=== PATIENT | male | born 1945 | race Caucasian/White ===

== ENCOUNTER 2024-07-18 11:18 | Emergency (ER) | payer OTHER, SELFPAY ==
--- NOTE | 2024-07-18 11:19 | ED_ITS ---
HPI - Ear Problem General Chief complaint: Ear Stated complaint: ear wax Time Seen by Provider: 07/18/24 11:30 Source: patient, RN notes reviewed and old records reviewed Mode of arrival: ambulatory Limitations: no limitations History of Present Illness HPI Narrative: 78-year-old male presents to the [facility] requesting to have earwax removed from his right ear states that he was at the hearing aid [facility] when they told him that he had too much wax in his right ear. Left was clear Related Data Home Medications ?Medication ?Instructions ?Recorded ?Confirmed ?Last Taken ?Type atorvastatin 40 mg tablet mg 07/18/24 Unknown History clopidogrel 75 mg tablet mg 07/18/24 Unknown History losartan 100 mg tablet mg 07/18/24 Unknown History Allergies Allergy/AdvReac Type Severity Reaction Status Date / Time No Known Allergies Allergy Verified 07/18/24 11:44 Review of Systems Review of Systems: All systems reviewed & are unremarkable except as noted in HPI and below Constitutional: Constitutional: Reports no additional constitutional complaints ENT: Reports as per HPI Cardiovascular: Cardiovascular: Reports no additional cardiovascular complaints, Denies chest pain and Denies dyspnea Respiratory: Respiratory: Reports no additional respiratory complaints, Denies chest congestion, Denies cough and Denies dyspnea Musculoskeletal: Musculoskeletal: Reports no additional musculoskeletal complaints Integumentary/Breasts: Skin/Breast: Reports system reviewed and no additional complaints, except as docu PMFSH Comments At the time of my signature, I reviewed and agree with the nursing past medical, surgical, social, and family history. There is no relevant family history pertinent to the patient complaint. Exam Const: General: cooperative, healthy appearing, comfortable, no acute distress, well developed, alert and well nourished Nutritional Appearance: well nourished Orientation/consciousness: patient oriented x3 Limitations: no limitations HENMT: Head: normal to inspection Ears: hearing grossly normal bilaterally, external ears normal, TM normal on the left and Abnormal EAC present excessive cerumen on the right Face/Nose/Sinus: Normal external nose present and Normal nares present Mouth: Yes Normal oral and palatal mucosa present, Yes lip normal, Yes tongue normal and Yes moist mucous membranes Eyes: General: appearance normal, both eyes and all related structures Alignment and Position: alignment normal Neck: Neck: normal visual inspection, full ROM, no lymphadenopathy and no meningeal signs Chest: Chest palpation & inspection: normal inspection of the chest Resp: Effort & Inspection: normal respiratory effort and able to speak in complete sentences Cardio: Rate: regular rate Skin: General skin exam: normal color and no rashes or lesions noted Neuro: General: patient oriented x3, gait normal, moves all extremities and no meningeal signs Cognition (Neuro): normal cognition Speech: normal speech Gait exam (Neuro): Normal gait present Extrem: General: normal to inspection, full ROM, capillary refill normal and normal gait Psych: Appearance: grossly normal and well kempt Mental Status: mental status grossly normal Speech and movement: Normal speech and movement present and Clear speech present Affect: normal affect Attitude: cooperative Course Course Level of Care: Express Care Visit Vital Signs Vital signs: Vital Signs Temperature 97.9 F 07/18/24 11:30 Pulse Rate 56 L 07/18/24 11:30 Respiratory Rate 07/18/24 11:30 Blood Pressure 129/77 07/18/24 11:30 Pulse Oximetry 97 07/18/24 11:30 Oxygen Delivery Room Air 07/18/24 11:30 Temperature 97.9 F 07/18/24 11:30 Pulse Rate 56 L 07/18/24 11:30 Respiratory Rate 07/18/24 11:30 Blood Pressure 129/77 07/18/24 11:30 Pulse Oximetry 97 07/18/24 11:30 Oxygen Delivery Room Air 07/18/24 11:30 Reviewed Procedures Ear Wax Removal Right Ear: Ear Wax Removal Date: 07/18/24 Ear Wax Removal Time: 12:23 Cerumenolytic Used: other ( water peroxide) Results: Re-examined: cerumen removed completely TM Examination: TM(s) intact, normal appearance Ear Canal Exam: atraumatic Patient Tolerated Procedure: well Complications: no problems Technique: ear canal irrigated and ear canal curetted Medical Decision Making MDM Narrative Medical decision making narrative: patient presents requesting his earwax removed. No earwax noted to left ear canal. Small amount noted to the right. Able to do irrigation as well as curette. Patient tolerated well. Patient is sitting comfortably in exam room. No acute distress and vitals are stable. Patient appropriate for outpatient treatment and follow-up Discharge instructions reviewed with patient, as well as provided in writing per nursing staff. The instructions also include specific and strict return/GO TO THE ER as well as f/u information. All questions have been answered, and the patient deny any further questions with discharge and discharge plan. Some parts of this dictation were generated by voice recognition software and may contain typographical and/or grammatical inaccuracies. Differential Diagnosis Differential Diagnosis: cerumen impaction, excessive cerumen, Medical Records Medical records reviewed: Yes I reviewed the external patient's medical records. Vital Signs Vital Signs: Vital Signs Temperature 97.9 F 07/18/24 11:30 Pulse Rate 56 L 07/18/24 11:30 Respiratory Rate 14 07/18/24 11:30 Blood Pressure 129/77 07/18/24 11:30 Pulse Oximetry 97 07/18/24 11:30 Oxygen Delivery Room Air 07/18/24 11:30 Temperature 97.9 F 07/18/24 11:30 Pulse Rate 56 L 07/18/24 11:30 Respiratory Rate 07/18/24 11:30 Blood Pressure 129/77 07/18/24 11:30 Pulse Oximetry 97 07/18/24 11:30 Oxygen Delivery Room Air 07/18/24 11:30 Reviewed Lab Data Lab results reviewed: Yes I reviewed the patient's lab results. Labs: Reviewed Critical Care Time Critical Care Time Critical Care Time: No Discharge Plan Discharge Clinical Impression: Excessive cerumen in right ear canal Patient Disposition: Home, Self-Care Condition: Stable Instructions: Antibiotic Form, Carbamide Peroxide (Into the ear) Additional Instructions: You had Cerumen (EAR wax impaction). Do not use Q-tips or put anything in the ear. This can damage the ear. Instead , use Debrox or ear wax remover. Place 5 drops in ear after a hot shower and place a warm compress over the ear for 20 minutes. alternate doing this every 3-4 days. It will break up the wax gently. Do not use too much pressure. Once you have all of the cerumen out of your ears, you may do preventative treatment to prevent this from happening again. Use 5 drops once weekly after a hot shower. Patient Language: [place] Prescriptions: No Action atorvastatin 40 mg tablet clopidogrel 75 mg tablet losartan 100 mg tablet Follow-up/Referrals: UNKNOWN,DOCTOR [Primary Care Provider] - Time of Disposition: 12:29
[2024-07-18 11:30] VITALS: BP 129/77; PULSE 56; RESP 14; TEMP 36.6; O2SAT 97
--- OUTSIDE RECORDS SUMMARY | 2024-07-18 12:08 | XMS_ITS | Patient Health Summary ---
Author Organization [facility] Address [address] [place] [address] Care Team Providers Care Retention Representative Name Role Phone Unavailable Primary Care Provider Unavailabl e Note from [facility],non-owned Affiliates and Associated Physician Practices is amultiple site organization consisting of ambulatory clinics and hospital sitesin [place], [place], [place] and [place]. This disclosure is being madepursuant to the Care Everywhere program and may not contain all information available regarding this patient. Last updated 18.[facility] Social History Tobacco Use Types Packs/Day Years Used Date Smoking Tobacco: Never Assessed Sex and Gender Information Value Date Recorded Sex Assigned at Not on file Gender Identity Not on file Sexual Orientation Not on file Procedures * DERMATOPATHOLOGY(Performed 10/31/2023) * DERMATOPATHOLOGY(Performed 06/13/2023) * DERMATOPATHOLOGY(Performed 12/13/2022) * DERMATOPATHOLOGY(Performed 10/05/2022) * DERMATOPATHOLOGY(Performed 06/15/2021) * DERMATOPATHOLOGY(Performed 11/11/2020) * DERMATOPATHOLOGY(Performed 01/06/2020) * DERMATOPATHOLOGY(Performed 10/28/2019) Results * DERMATOPATHOLOGY (10/31/2023 12:00 AM CDT) Only the most recent of8 resultswithin the time period is included. Case Report Dermatopathology Report Case: [id number] Authorizing Provider: Al Salazar Jr., MD Collected: 10/31/2023 12:00 AM Ordering Location: [facility] - Received: 10/31/2023 12:50 PM DermPath Lab Pathologist: Elba Vaughn MD Specimens: A) - Skin, right medial superior chest B) - Skin, right superior helix 3:52 PM CDT DERMATOPATHOLOGY LABORATORY Final Diagnosis Specimen A. 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 SKIN, right superior helix: SQUAMOUS CELL CARCINOMA, WELL DIFFERENTIATED (C44.222) 3:52 PM CDT DERMATOPATHOLOGY LABORATORY Clinical History A-B: BCC 3:52 PM CDT DERMATOPATHOLOGY LABORATORY Gross Description Specimen A: Received is one formalin filled container labeled with the patient's name and designated right medial superior chest. The specimen consists of a shave biopsy measuring 6x5x1 mm. Jar 0. Specimen B: Received is one formalin filled container labeled with the patient's name and designated right superior helix. The specimen consists of a shave biopsy measuring 5x3x1 mm. Jar 0. 3:52 PM CDT DERMATOPATHOLOGY LABORATORY Microscopic Description Specimen A. SKIN, right medial superior chest: The epidermis shows parakeratosis, full thickness disorderly maturation of keratinocytes, mitoses at different levels, and dyskeratotic cells. Specimen B. SKIN, right superior helix: Arising in the epidermis and extending into the dermis there are irregularly shaped aggregates of keratinocytes showing evidence of premature cornification. Some nests display focally infiltrative growth. 3:52 PM CDT DERMATOPATHOLOGY LABORATORY Disclaimer An external and internal positive and negative controls are appropriate for the histochemical, immunohistochemical and immunofluorescence stain(s) in this case (if any), except where stated explicitly. The performance characteristics of the stain(s) cited in this report were developed and its performance characteristic determined by the Dermatopathology Laboratory at [facility], directed by Dr. Tarik Echeverria. These tests need not be, and therefore are not, approved by the [place] Food and Drug Administration. The tests are used for clinical purposes. Billing Codes Specimen Charges Stain Charges 34557 42841 1 1 3:52 PM CDT DERMATOPATHOLOGY LABORATORY Embedded Images 3:52 PM CDT DERMATOPATHOLOGY LABORATORY Pathology/Cytology TISSUE SPECIMEN FROM SKIN / Unknown 10/31/2023 10/31/2023 12:50 PM CDT Miscellaneous samples (specimen) TISSUE SPECIMEN FROM SKIN / Unknown 10/31/2023 10/31/2023 12:50 PM CDT Al Salazar Jr., MD LAB - PATHOLOGY /CYTOLOGY ORDERABLES Performing Organization Address City/State/[facility] Co de Phone Number DERMATOPATHOLOGY LABORATORY [facility] - Department of Dermatology [facility] [address] [place] [address], [address] [phone]
--- OUTSIDE RECORDS SUMMARY | 2024-07-18 12:08 | XMS_ITS | Encounter Summary ---
Author Organization [facility] Address [address] [place] [address] Care Team Providers Care Pen Or Pencil Assembly Machine Operator Name Role Phone Unavailable Primary Care Provider Unavailabl e Encounter Details Date Type Department Care Team (Late st Contact Info) Description 10/05/2022 Lab Requisition [facility] - DermPath Lab [address] [facility] [place] [id number] Al Salazar Jr., MD [address] [place] [address] Social History Tobacco Use Types Packs/Day Years Used Date Smoking Tobacco: Never Assessed Sex and Gender Information Value Date Recorded Sex Assigned at Not on file Gender Identity Not on file Sexual Orientation Not on file documented as of this encounter Plan of Treatment Not on file documented as of this encounter Procedures Procedure Name Priority Date/Time Associated Diagnosis Comments DERMATOPATHOLOGY Routine 10/05/2022 12:0 0 AM CDT documented in this encounter Results * DERMATOPATHOLOGY (10/05/2022 12:00 AM CDT) Case Report Dermatopathology Report Case: [id number] Authorizing Provider: Al Salazar Jr., MD Collected: 10/05/2022 12:00 AM Ordering Location: [facility] DermPath Lab Received: 10/05/2022 02:25 PM Pathologist: Ami Echeverria MD Specimen: Skin, right central malar cheek 3 12:00 PM CDT DERMATOPATHOLOGY LABORATORY Final Diagnosis Specimen A. SKIN, right central malar cheek: EPIDERMOID CYST WITH EVIDENCE OF RUPTURE (L72.0) 3 12:00 PM CDT DERMATOPATHOLOGY LABORATORY Clinical History Cyst vs BCC 3 12:00 PM CDT DERMATOPATHOLOGY LABORATORY Gross Description Specimen A: Received is one formalin filled container labeled with the patient's name and designated right central malar cheek. The specimen consists of two punch biopsies measuring 4x3x3 and 2x2x1 mm. Jar 0. 3 12:00 PM CDT DERMATOPATHOLOGY LABORATORY Microscopic Description Specimen A. SKIN, right central malar cheek: Within the dermis, there is a space lined by epithelium that resembles normal epidermis and the infundibular portion of the hair follicle. Surrounding this is an infiltrate with neutrophils, histiocytes, and multinucleated giant cells. 3 12:00 PM CDT DERMATOPATHOLOGY LABORATORY Disclaimer An external and internal positive and negative controls are appropriate for the histochemical, immunohistochemical and immunofluorescence stain(s) in this case (if any), except where stated explicitly. The performance characteristics of the stain(s) cited in this report were developed and its performance characteristic determined by the Dermatopathology Laboratory at [facility], directed by Dr. Tarik Echeverria. These tests need not be, and therefore are not, approved by the [place] Food and Drug Administration. The tests are used for clinical purposes. Billing Codes Specimen Charges Stain Charges 30488 1 3 12:00 PM CDT DERMATOPATHOLOGY LABORATORY Embedded Images 3 12:00 PM CDT DERMATOPATHOLOGY LABORATORY Pathology/Cytolog y TISSUE SPECIMEN FROM SKIN / Unknown 10/05/2022 10/05/2022 2:25 PM CDT Al Salazar Jr., MD LAB - PATHOLOGY /CYTOLOGY ORDERABLES DERMATOPATHOLOGY LABORATORY [facility] - Department of Dermatology [address], [address] [phone] documented in this encounter Visit Diagnoses Not on filedocumented in this encounter
--- OUTSIDE RECORDS SUMMARY | 2024-07-18 12:08 | XMS_ITS | Encounter Summary ---
Author Organization [facility] Address [address] [place] [address] Care Team Providers Care Broadcast Systems Engineer Name Role Phone Unavailable Primary Care Provider Unavailabl e Encounter Details Date Type Department Care Team (Late st Contact Info) Description 01/07/2020 Lab Requisition [facility] DermPath Lab [address] [facility] [place] [phone] [place] [address] [place] [address] Social History Tobacco Use Types Packs/Day Years Used Date Smoking Tobacco: Never Assessed Sex and Gender Information Value Date Recorded Sex Assigned at Not on file Gender Identity Not on file Sexual Orientation Not on file documented as of this encounter Plan of Treatment Not on file documented as of this encounter Procedures Procedure Name Priority Date/Time Associated Diagnosis Comments DERMATOPATHOLOGY Routine 01/06/2020 12:0 0 AM CDT documented in this encounter Results * DERMATOPATHOLOGY (01/06/2020 12:00 AM CDT) Case Report Dermatopathology Report Case: [id number] Authorizing Provider: Leslee Tee MD Collected: 01/06/2020 12:00 AM Ordering Location: [facility] DermPath Lab Received: 01/07/2020 02:19 PM Pathologist: Carmelita Vaughn MD Specimen: Skin, nasal tip 0 1:02 PM CDT DERMATOPATHOLOGY LABORATORY Final Diagnosis Specimen A. SKIN, nasal tip: ACTINIC KERATOSIS (L57.0) (see microscopic description) 0 1:02 PM CDT DERMATOPATHOLOGY LABORATORY Clinical History Basal cell carcinoma. . 0 1:02 PM CDT DERMATOPATHOLOGY LABORATORY Gross Description Specimen A: Received is one formalin filled container labeled with the patient's name and designated nasal tip. The specimen consists of a shave biopsy measuring [id number]. Jar 0. 0 1:02 PM CDT DERMATOPATHOLOGY LABORATORY Microscopic Description Specimen A. SKIN, nasal tip: There is focal parakeratosis. The lower half of the epidermis shows disorderly maturation of keratinocytes with nuclear pleomorphism. Adnexal extension of the lesion is seen. 0 1:02 PM CDT DERMATOPATHOLOGY LABORATORY Disclaimer An external and internal positive and negative controls are appropriate for the histochemical, immunohistochemical and immunofluorescence stain(s) in this case (if any), except where stated explicitly. The performance characteristics of the stain(s) cited in this report were developed and its performance characteristic determined by the Dermatopathology Laboratory at [facility], directed by Dr. Tarik Echeverria. These tests need not be, and therefore are not, approved by the [place] Food and Drug Administration. The tests are used for clinical purposes. Billing Codes Specimen Charges Stain Charges 54244 1 0 1:02 PM CDT DERMATOPATHOLOGY LABORATORY Embedded Images 0 1:02 PM CDT DERMATOPATHOLOGY LABORATORY Pathology/Cytolog y TISSUE SPECIMEN FROM SKIN / Unknown 01/06/2020 01/07/2020 2:19 PM CDT Leslee Tee MD LAB - PATHOLOGY/C YTOLOGY ORDERABLES DERMATOPATHOLOGY LABORATORY [facility] - Department of Dermatology [address], [address] [phone] documented in this encounter Visit Diagnoses Not on filedocumented in this encounter
--- OUTSIDE RECORDS SUMMARY | 2024-07-18 12:08 | XMS_ITS | Clinical Summary ---
Author Organization [facility] Address [address] [facility] [facility] [place] [address] Care Team Providers Care Coiled Tubing Operator Name Role Phone Unavailable Primary Care Provider Unavailabl e Source Comments [facility] [employer],non-owned Affiliates and Associated Physician Practices is amultiple site organization consisting of ambulatory clinics and hospital sitesin [place], [place], [place] and [place]. This disclosure is being madepursuant to the Care Everywhere program and may not contain all information available regarding this patient. Last updated 18.[facility] [employer] Social History Tobacco Use Types Packs/Day Years Used Date Smoking Tobacco: Never Assessed Sex and Gender Information Value Date Recorded Sex Assigned at Not on file Gender Identity Not on file Sexual Orientation Not on file Plan of Treatment Health Maintenance Due Date Last Done Comments MEDICARE AWV 12 MONTHS 1945 HEPATITIS C SCREENING 10/01/1964 DTAP/TDAP/TD VACCINES (1 - Tdap) 1965 PNEUMOCOCCAL VACCINE 50+ (1 of 1 - PCV) 1996 ZOSTER VACCINE (1 of 2) 1996 Respiratory Syncytial Virus (RSV) Vaccine Pt: or over 60 yrs (1 - 1-dose 75+ series) 2021 COVID-19 VACCINE ( - 2023-2 5 season) 2024 INFLUENZA VACCINE (#1) 2024 DEPRESSION SCREENING 05/07/2024 MEDICARE AWV CALENDAR YEAR 2024 HEPATITIS B VACCINE Aged Out No longe r eligible based on patient's age to complete this topic HIB VACCINE Aged Out No longer eligi ble based on patient's age to complete this topic HPV VACCINE Aged Out No longer eligi ble based on patient's age to complete this topic MENINGOCOCCAL (Group B) VACC INE SHARED DECISION-MAKING Aged Out No longer eligibl e based on patient's age to complete this topic MENINGOCOCCAL GROUPS A/C/Y/W VACCINE Aged Out No longer eligible b ased on patient's age to complete this topic
--- OUTSIDE RECORDS SUMMARY | 2024-07-18 12:08 | XMS_ITS | Encounter Summary ---
Author Organization [facility] Address [address] [place] [address] Care Team Providers Care Medical Assistant Secretary Name Role Phone Unavailable Primary Care Provider Unavailabl e Encounter Details Date Type Department Care Team (Late st Contact Info) Description 11/12/2020 Lab Requisition [facility] DermPath Lab [address] [facility] [place] [address] Al Salazar Jr., MD [address] [facility] [address] [place] [address] Social History Tobacco Use Types Packs/Day Years Used Date Smoking Tobacco: Never Assessed Sex and Gender Information Value Date Recorded Sex Assigned at Not on file Gender Identity Not on file Sexual Orientation Not on file documented as of this encounter Plan of Treatment Not on file documented as of this encounter Procedures Procedure Name Priority Date/Time Associated Diagnosis Comments DERMATOPATHOLOGY Routine 11/11/2020 12:0 0 AM CDT documented in this encounter Results * DERMATOPATHOLOGY (11/11/2020 12:00 AM CDT) Case Report Dermatopathology Report Case: [id number] Authorizing Provider: Al Salazar Jr., MD Collected: 11/11/2020 12:00 AM Ordering Location: [facility] DermPath Lab Received: 11/12/2020 02:21 PM Pathologist: Cindy Trinidad MD Specimen: Skin, right anterior earlobe 6:41 PM CDT DERMATOPATHOLOGY LABORATORY Final Diagnosis Specimen A. 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 . 1 6:41 PM CDT DERMATOPATHOLOGY LABORATORY Gross Description Specimen A: Received is one formalin filled container labeled with the patient's name and designated right anterior earlobe. The specimen consists of a shave biopsy measuring [id number]. Jar 0. 1 6:41 PM CDT DERMATOPATHOLOGY LABORATORY Microscopic Description Specimen A. SKIN, right anterior earlobe: Sections show skin with irregularly shaped nests of keratinocytes with evidence of cornification. In some nests, there is loss of cohesion between the neoplastic cells, as well as individual dyskeratotic cells that lack intercellular bridges. 1 6:41 PM CDT DERMATOPATHOLOGY LABORATORY Disclaimer An external and internal positive and negative controls are appropriate for the histochemical, immunohistochemical and immunofluorescence stain(s) in this case (if any), except where stated explicitly. The performance characteristics of the stain(s) cited in this report were developed and its performance characteristic determined by the Dermatopathology Laboratory at [facility], directed by Dr. Tarik Echeverria. These tests need not be, and therefore are not, approved by the [place] Food and Drug Administration. The tests are used for clinical purposes. Billing Codes Specimen Charges Stain Charges 94005 1 1 6:41 PM CDT DERMATOPATHOLOGY LABORATORY Embedded Images 1 6:41 PM CDT DERMATOPATHOLOGY LABORATORY Pathology/Cytolog y TISSUE SPECIMEN FROM SKIN / Unknown 11/11/2020 11/12/2020 2:21 PM CDT Al Salazar Jr., MD LAB - PATHOLOGY /CYTOLOGY ORDERABLES DERMATOPATHOLOGY LABORATORY [facility] - Department of Dermatology [address], [address] [phone] documented in this encounter Visit Diagnoses Not on filedocumented in this encounter
--- OUTSIDE RECORDS SUMMARY | 2024-07-18 12:08 | XMS_ITS | Encounter Summary ---
Author Organization [facility] Address [address] [facility] [place] [address] Care Team Providers Care Director Of Marketing Communications Name Role Phone Unavailable Primary Care Provider Unavailabl e Encounter Details Date Type Department Care Team (Late st Contact Info) Description 06/16/2021 Lab Requisition [facility] [address] [facility] [place] [address] Al Salazar Jr., MD [address] [facility] [address] [place] [address] Social History Tobacco Use Types Packs/Day Years Used Date Smoking Tobacco: Never Assessed Sex and Gender Information Value Date Recorded Sex Assigned at Not on file Gender Identity Not on file Sexual Orientation Not on file documented as of this encounter Plan of Treatment Not on file documented as of this encounter Procedures Procedure Name Priority Date/Time Associated Diagnosis Comments DERMATOPATHOLOGY Routine 06/15/2021 12:0 0 AM SAP ARCHITECT documented in this encounter Results * DERMATOPATHOLOGY (06/15/2021 12:00 AM SAP ARCHITECT) Case Report Dermatopathology Report Case: [id number] Authorizing Provider: Al Salazar Jr., MD Collected: 06/15/2021 12:00 AM Ordering Location: [facility] Received: 06/16/2021 10:43 AM Pathologist: Ami Echeverria MD Specimens: A) - Skin, left superior parietal scalp B) - Skin, right central zygoma C) - Skin, left lateral tenriism 1:20 PM SAP ARCHITECT DERMATOPATHOLOGY LABORATORY Final Diagnosis Specimen A. 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 SKIN, right central zygoma: HYPERPLASTIC (HYPERTROPHIC) ACTINIC KERATOSIS (L57.0) Specimen C. 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 The specimen consists of a shave biopsy measuring 6x6x2 mm. Jar 0. Specimen B: Received is one formalin filled container labeled with the patient's name and designated right central zygoma. The specimen consists of a shave biopsy measuring 7x5x2 mm. Jar 0. Specimen C: Received is one formalin filled container labeled with the patient's name and designated left lateral tenriism. The specimen consists of a shave biopsy measuring 7x6x2 and 5x4x1 mm. Jar 0. 2 1:20 PM [facility] DERMATOPATHOLOGY [facility]ORATORY Microscopic Description Specimen A. SKIN, left superior parietal scalp: The epidermis shows parakeratosis, full thickness disorderly maturation of keratinocytes, mitoses at different levels, and dyskeratotic cells. Specimen B. SKIN, right central zygoma: There is hyperkeratosis alternating with parakeratosis. There is epidermal hyperplasia with disorderly maturation of keratinocytes with nuclear pleomorphism confined to the lower half of the epidermis. Specimen C. SKIN, left lateral tenriism: There is focal parakeratosis. The lower half of the epidermis shows disorderly maturation of keratinocytes with nuclear pleomorphism. Focally there is a suprabasilar cleft with acantholytic cells. 2 1:20 PM [facility] DERMATOPATH[facility]Y [facility]ORATORY Disclaimer An external and internal positive and negative controls are appropriate for the histochemical, immunohistochemical and immunofluorescence stain(s) in this case (if any), except where stated explicitly. The performance characteristics of the stain(s) cited in this report were developed and its performance characteristic determined by the Dermatopathology Laboratory at [facility], directed by Dr. Tarik Echeverria. These tests need not be, and therefore are not, approved by the [place] Food and Drug Administration. The tests are used for clinical purposes. Billing Codes Specimen Charges Stain Charges 28899 95608 01916 1 1 1 2 1:20 PM SAP ARCHITECT DERMATOPATHOLOGY LABORATORY Embedded Images 2 1:20 PM SAP ARCHITECT DERMATOPATHOLOGY LABORATORY Pathology/Cytology TISSUE SPECIMEN FROM SKIN / Unknown 06/15/2021 06/16/2021 10:43 AM SAP ARCHITECT Miscellaneous samples (specimen) TISSUE SPECIMEN FROM SKIN / Unknown 06/15/2021 06/16/2021 10:43 AM SAP ARCHITECT Miscellaneous samples (specimen) TISSUE SPECIMEN FROM SKIN / Unknown 06/15/2021 06/16/2021 10:43 AM SAP ARCHITECT Al Salazar Jr., MD LAB - PATHOLOGY /CYTOLOGY ORDERABLES DERMATOPATHOLOGY LABORATORY [facility] - Department of Dermatology [facility] Medicine [address] [place] [address], [address] [phone] documented in this encounter Visit Diagnoses Not on filedocumented in this encounter
--- OUTSIDE RECORDS SUMMARY | 2024-07-18 12:08 | XMS_ITS | Encounter Summary ---
Author Organization [facility] Address [address] [facility] [place] [address] Care Team Providers Care Road Freight Brake Coupler Name Role Phone Unavailable Primary Care Provider Unavailabl e Encounter Details Date Type Department Care Team (Late st Contact Info) Description 12/14/2022 Lab Requisition [facility] Lab [address] [facility] [place] [phone] Al Salazar Jr., MD [address] [facility] [address] [place] [address] Social History Tobacco Use Types Packs/Day Years Used Date Smoking Tobacco: Never Assessed Sex and Gender Information Value Date Recorded Sex Assigned at Not on file Gender Identity Not on file Sexual Orientation Not on file documented as of this encounter Plan of Treatment Not on file documented as of this encounter Procedures Procedure Name Priority Date/Time Associated Diagnosis Comments DERMATOPATHOLOGY Routine 12/13/2022 12:0 0 AM CDT documented in this encounter Results * DERMATOPATHOLOGY (12/13/2022 12:00 AM CDT) Case Report Dermatopathology Report Case: [id number] Authorizing Provider: Al Salazar Jr., MD Collected: 12/13/2022 12:00 AM Ordering Location: [facility] Received: 12/14/2022 02:23 PM Pathologist: Ami Echeverria MD Specimen: Skin, left lateral malar cheek 3 1:08 PM CDT DERMATOPATHOLOGY LABORATORY Final Diagnosis Specimen A. SKIN, left lateral malar cheek: HYPERPLASTIC (HYPERTROPHIC) ACTINIC KERATOSIS (L57.0) 3 1:08 PM CDT DERMATOPATHOLOGY LABORATORY Clinical History SCC vs AK vs ISK 3 1:08 PM CDT DERMATOPATHOLOGY LABORATORY Gross Description Specimen A: Received is one formalin filled container labeled with the patient's name and designated left lateral malar cheek. The specimen consists of a shave biopsy measuring 5x7x2 mm. Jar 0. 3 1:08 PM CDT DERMATOPATHOLOGY LABORATORY Microscopic Description Specimen A. SKIN, left lateral malar cheek: There is hyperkeratosis alternating with parakeratosis. There is epidermal hyperplasia with disorderly maturation of keratinocytes with nuclear pleomorphism confined to the lower half of the epidermis. 3 1:08 PM CDT DERMATOPATHOLOGY LABORATORY Disclaimer An external and internal positive and negative controls are appropriate for the histochemical, immunohistochemical and immunofluorescence stain(s) in this case (if any), except where stated explicitly. The performance characteristics of the stain(s) cited in this report were developed and its performance characteristic determined by the Dermatopathology Laboratory at [facility], directed by Dr. Tarik Echeverria. These tests need not be, and therefore are not, approved by the [place] Food and Drug Administration. The tests are used for clinical purposes. Billing Codes Specimen Charges Stain Charges 18539 1 3 1:08 PM CDT DERMATOPATHOLOGY LABORATORY Embedded Images 3 1:08 PM CDT DERMATOPATHOLOGY LABORATORY Pathology/Cytolog y TISSUE SPECIMEN FROM SKIN / Unknown 12/13/2022 12/14/2022 2:23 PM CDT Al Salazar Jr., MD LAB - PATHOLOGY /CYTOLOGY ORDERABLES DERMATOPATHOLOGY LABORATORY [facility] - Department of Dermatology [address] [place] [address], [facility] [phone] documented in this encounter Visit Diagnoses Not on filedocumented in this encounter
--- OUTSIDE RECORDS SUMMARY | 2024-07-18 12:08 | XMS_ITS | Referral Summary ---
Author Organization [facility] Address [address] [facility] [address] Care Team Providers Care Directional Drill Operator Name Role Phone Unavailable Primary Care Provider Unavailabl e Source Comments [facility],non-owned Affiliates and Associated Physician Practices is amultiple site organization consisting of ambulatory clinics and hospital sitesin [place], [place], [place] and [place]. This disclosure is being madepursuant to the Care Everywhere program and may not contain all information available regarding this patient. Last updated 18.[facility] [employer] Social History Tobacco Use Types Packs/Day Years Used Date Smoking Tobacco: Never Assessed Sex and Gender Information Value Date Recorded Sex Assigned at Not on file Gender Identity Not on file Sexual Orientation Not on file Plan of Treatment Not on file
--- OUTSIDE RECORDS SUMMARY | 2024-07-18 12:08 | XMS_ITS | Encounter Summary ---
Author Organization [facility] Address [address] [facility] [place] [address] Care Team Providers Care Digital Media Representative Name Role Phone Unavailable Primary Care Provider Unavailabl e Encounter Details Date Type Department Care Team (Late st Contact Info) Description 10/29/2019 Lab Requisition [facility] Lab [address] [facility] [place] [phone] [place] [address] [place] [address] Social History Tobacco Use Types Packs/Day Years Used Date Smoking Tobacco: Never Assessed Sex and Gender Information Value Date Recorded Sex Assigned at Not on file Gender Identity Not on file Sexual Orientation Not on file documented as of this encounter Plan of Treatment Not on file documented as of this encounter Procedures Procedure Name Priority Date/Time Associated Diagnosis Comments DERMATOPATHOLOGY Routine 10/28/2019 12:0 0 AM CDT documented in this encounter Results * DERMATOPATHOLOGY (10/28/2019 12:00 AM CDT) Case Report Dermatopathology Report Case: [id number] Authorizing Provider: Leslee Tee MD Collected: 10/28/2019 12:00 AM Ordering Location: [facility] Received: 10/29/2019 01:42 PM Pathologist: Ami Echeverria MD Specimen: Skin, left inferior central forehead 0 1:05 PM CDT DERMATOPATHOLOGY LABORATORY Final Diagnosis Specimen A. 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 0 1:05 PM CDT DERMATOPATHOLOGY LABORATORY Gross Description Specimen A: Received is one formalin filled container labeled with the patient's name and designated left inferior central forehead. The specimen consists of a shave biopsy measuring 4x3x1 mm. Jar 0. 0 1:05 PM CDT DERMATOPATHOLOGY LABORATORY Microscopic Description Specimen A. SKIN, left inferior central forehead: The epidermis shows parakeratosis, full thickness disorderly maturation of keratinocytes, mitoses at different levels, and dyskeratotic cells. 0 1:05 PM CDT DERMATOPATHOLOGY LABORATORY Disclaimer An external and internal positive and negative controls are appropriate for the histochemical, immunohistochemical and immunofluorescence stain(s) in this case (if any), except where stated explicitly. The performance characteristics of the stain(s) cited in this report were developed and its performance characteristic determined by the Dermatopathology Laboratory at [facility], directed by Dr. Tarik Echeverria. These tests need not be, and therefore are not, approved by the [place] Food and Drug Administration. The tests are used for clinical purposes. Billing Codes Specimen Charges Stain Charges 05764 1 0 1:05 PM CDT DERMATOPATHOLOGY LABORATORY Embedded Images 0 1:05 PM CDT DERMATOPATHOLOGY LABORATORY Pathology/Cytolog y TISSUE SPECIMEN FROM SKIN / Unknown 10/28/2019 10/29/2019 1:42 PM CDT Leslee Tee MD LAB - PATHOLOGY/C YTOLOGY ORDERABLES DERMATOPATHOLOGY LABORATORY [facility] - Department of Dermatology [facility] [employer] [facility]/[address] [phone] documented in this encounter Visit Diagnoses Not on filedocumented in this encounter
--- OUTSIDE RECORDS SUMMARY | 2024-07-18 12:08 | XMS_ITS | Encounter Summary ---
Author Organization [facility] Address [address] [place] [address] Care Team Providers Care Administration Dean Name Role Phone Unavailable Primary Care Provider Unavailabl e Encounter Details Date Type Department Care Team (Late st Contact Info) Description 06/13/2023 Lab Requisition [facility] - [facility] Lab [address] [facility] [place] [phone] Al Salazar Jr., MD [address] [facility] [address] [place] [address] Social History Tobacco Use Types Packs/Day Years Used Date Smoking Tobacco: Never Assessed Sex and Gender Information Value Date Recorded Sex Assigned at Not on file Gender Identity Not on file Sexual Orientation Not on file documented as of this encounter Plan of Treatment Not on file documented as of this encounter Procedures Procedure Name Priority Date/Time Associated Diagnosis Comments DERMATOPATHOLOGY Routine 06/13/2023 3:33 AM BODY DESIGNER documented in this encounter Results * DERMATOPATHOLOGY (06/13/2023 3:33 AM BODY DESIGNER) Case Report Dermatopathology Report Case: [id number] Authorizing Provider: Al Salazar Jr., MD Collected: 06/13/2023 03:33 AM Ordering Location: [facility] Lab Received: 06/13/2023 04:09 PM Pathologist: Elba Vaughn MD Specimen: Skin, posterior mid parietal scalp 4 4:33 PM BODY DESIGNER DERMATOPATHOLOGY LABORATORY Final Diagnosis Specimen A. SKIN, posterior mid parietal scalp: SUPERFICIAL (FOCALLY INVASIVE) SQUAMOUS CELL CARCINOMA ARISING IN AN ACTINIC KERATOSIS (C44.42) 4 4:33 PM BODY DESIGNER DERMATOPATHOLOGY LABORATORY Clinical History Squamous Cell Carcinoma 4 4:33 PM [facility] DERMATOPATHOLOGY LABORATORY Gross Description Specimen A: Received is one formalin filled container labeled with the patient's name and designated posterior mid parietal scalp. The specimen consists of a shave biopsy measuring 8x5x1 mm. Jar 0. 4 4:33 PM [facility] DERMATOPATHOLOGY LABORATORY Microscopic Description Specimen A. SKIN, posterior mid parietal scalp: Sections reveal parakeratosis, acanthosis and keratinocyte dysmaturation which is most prominent in the lower epidermis. Focal nests are present in the dermis. 4 4:33 PM [facility] DERMATOPATHOLOGY LABORATORY Disclaimer An external and internal [...] purposes. Billing Codes Specimen Charges Stain Charges 50652 1 4 4:33 PM [facility] DERMATOPATHOLOGY LABORATORY Embedded Images 4 4:33 PM [facility] DERMATOPATHOLOGY LABORATORY Pathology/Cytolo gy TISSUE SPECIMEN FROM SKIN / Unknown 06/13/2023 3:33 AM BODY DESIGNER 06/13/2023 4:09 PM BODY DESIGNER Al Salazar Jr., MD LAB - PATHOLOGY /CYTOLOGY ORDERABLES DERMATOPATHOLOGY LABORATORY [facility] - Department of Dermatology [address], [address] [phone] documented in this encounter Visit Diagnoses Not on filedocumented in this encounter
--- OUTSIDE RECORDS SUMMARY | 2024-07-18 12:08 | XMS_ITS | Encounter Summary ---
Author Organization [facility] Address [address] [facility] [place] [address] Care Team Providers Care Supervisor Labor Gang Name Role Phone Unavailable Primary Care Provider Unavailabl e Encounter Details Date Type Department Care Team (Late st Contact Info) Description 10/31/2023 Lab Requisition [facility] - [facility] Lab [address] [facility] [place] [phone] Al Salazar Jr., MD [address] [facility] [address] [place] [address] Social History Tobacco Use Types Packs/Day Years Used Date Smoking Tobacco: Never Assessed Sex and Gender Information Value Date Recorded Sex Assigned at Not on file Gender Identity Not on file Sexual Orientation Not on file documented as of this encounter Plan of Treatment Not on file documented as of this encounter Procedures Procedure Name Priority Date/Time Associated Diagnosis Comments DERMATOPATHOLOGY Routine 10/31/2023 12:0 0 AM CDT documented in this encounter Results * DERMATOPATHOLOGY (10/31/2023 12:00 AM CDT) Case Report Dermatopathology Report Case: [id number] Authorizing Provider: Al Salazar Jr., MD Collected: 10/31/2023 12:00 AM Ordering Location: [facility] Physician [facility] - Received: 10/31/2023 12:50 PM DermPath Lab [...] purposes. Billing Codes Specimen Charges Stain Charges 73551 62646 1 1 3:52 PM CDT DERMATOPATHOLOGY LABORATORY Embedded Images 3:52 PM CDT DERMATOPATHOLOGY LABORATORY Pathology/Cytology TISSUE SPECIMEN FROM SKIN / Unknown 10/31/2023 10/31/2023 12:50 PM CDT Miscellaneous samples (specimen) TISSUE SPECIMEN FROM SKIN / Unknown 10/31/2023 10/31/2023 12:50 PM CDT Al Salazar Jr., MD LAB - PATHOLOGY /CYTOLOGY ORDERABLES DERMATOPATHOLOGY LABORATORY [facility] - Department of Dermatology [facility] Medicine [address] [place] [address], [address] [phone] documented in this encounter Visit Diagnoses Not on filedocumented in this encounter
--- OUTSIDE RECORDS SUMMARY | 2024-07-18 12:09 | XMS_ITS | Referral Summary ---
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 colorectal cancer who were screened with both Cologuard and colonoscopy. (Murray Celis al, N Engl J Med 2014;370(14):1085-1511) The normal value (reference range) for this assay is negative. COLOGUARD RE-SCREENING RECOMMENDATION: Periodic routine colorectal cancer screening is an important part of preventive healthcare for asymptomatic persons at average risk for colorectal cancer. Following a negative Cologuard result, the [place] [employer] and U.S. Multi-Society Task Force screening guidelines recommend a Cologuard re-screening interval of 3 years. References: [place] (ACS). Colorectal cancer prevention and early detection. [place], [place]: [employer]; [updated 2015Aug 28]. https://www.cancer.org/cancer/oawws-itptmg-gcftyw/gneyswsyx-pswsxvbco-zmbknmz/ac s-rec ommendations.html. Accessed January 04, 2018; Pelon DK, Dereck TURK, Joni CAMP, Colorectal Cancer Screening: Recommendations for Physicians and Patients from the U.S. Multi-Society Task Force on Colorectal Cancer Screening, Am J Gastroenterology 2017; 112:3103-9345. TEST TYPE: Composite algorithmic analysis of stool DNA-biomarkers with hemoglobin immunoassay. Quantitative values of individual biomarkers are not reportable and are not associated with individual biomarker result reference ranges. PRECAUTIONS AND LIMITATIONS: Cologuard is intended for colorectal cancer screening of adults of either sex, 45 years or older, who are at average-risk for colorectal cancer (CRC). Cologuard has been approved for use by the U.S. FDA. Cologuard may produce a false negative or false positive result. A negative Cologuard test result does not guarantee the absence of CRC or advanced adenoma (pre-cancer). Patients with a negative Cologuard test result should be advised to continue participating in a colorectal cancer screening program. The screening interval for Cologuard is currently recommended at an interval of every 3 years by the [place] [employer] and U.S. Multi-Society Task Force. A false positive result occurs when Cologuard produces a positive result, even though a colonoscopy may not find colorectal cancer or precancerous polyps. The performance of Cologuard has been established in a cross sectional study (i.e., single point in time) of average-risk adults aged 50-84. Cologuard performance in patients ages 45 to 49 years was estimated by sub-group analysis of near-age groups. Cologuard performance data in a 10,000 patient pivotal study using colonoscopy as the reference method can be accessed at the following location: www.[employer]/results. Additional description of the Cologuard test process, warnings and precautions can be found at www.cologuardtest.com. Rx only. Stool 03/23/2020 8:30 AM INSURANCE POLICY CLERK 03/24/2020 12:38 PM INSURANCE POLICY CLERK Erica Henriquez MD LAB BODY FLUIDS AND STOOL S ORDERABLES Final Result [facility] (CLIA #:[id number]) [place] [place] [address] * Hepatitis C antibody (03/15/2020 3:57 PM INSURANCE POLICY CLERK) Hep C Ab Nonreactive Nonreactive IVANA PACHECO Comment: Interpretive Data Nonreactive: Antibodies to HCV not detected. Does NOT exclude the possibility of recent exposure to HCV. Equivocal: Equivocal for HCV antibodies. Supplemental molecular testing will be automatically performed to determine infection status in accordance with current CDC screening recommendations. Reactive: Positive for HCV antibodies. This may represent current or past HCV infection. Supplemental molecular testing will be automatically performed to determine current infection status in accordance with current CDC screening recommendations. Interpretive data was last revised on 2019. Blood specimen (specimen) 03/15/2020 3:57 PM INSURANCE POLICY CLERK 03/15/2020 7:53 PM INSURANCE POLICY CLERK Erica Henriquez MD LAB MICROBIOLOGY - GENERA L ORDERABLES Final Result Performing Organization Address City/[facility] Co de Phone Number [facility] [address] Department [place] [address] * Colonoscopy (12/06/2009) Anatomical Region Laterality Modality Other Historical Provider ENDOSCOPY PROCEDURES Jenae l Result from Last 3 Months or Most Recently Relevant to Health Maintenance Insurance [facility] Advance Directives For more information, please contact: [phone] Documents on File Type Date Recorded Patient Fisher Clam Expl anation ADVANCE DIRECTIVE 03/17/2019 9:52 AM Care Teams Ball Assembler Relationship Specialty [place] [id number] [address] [facility] [address] [place] [address] PCP - General 08/04/16 Nixon Ramirez MD [address] [facility] [address] [place] [address] Referring Physician Dermatology 11/19/23 Al Salazar Jr., MD [address] [facility] [address] [place] [address] Dermatology 03/20/24 Martinez Bruner DPM [address] [place] [address] Plastic Surgeon Foot and Ankle Surg 03/20/24 [place] [address] [facility] [address] [place] [address] Consulting Physician Cardiology 03/20/24
--- OUTSIDE RECORDS SUMMARY | 2024-07-18 12:09 | XMS_ITS | CONTINUITY OF CARE DOCUMENT ---
Author Name francy sen Address Unknown Organization [facility] Address [address] [place] [address] Phone [phone] Care Team Providers Care Brooch And Bracelet Maker Name Role Phone Abdoulaye Tran MD Unavailable [phone] BRNENA RENE, AME L Unavailable BRENNA RENE AME L Unavailable PROBLEMS Condition Status Date Provider Notes BRADYCARDIA SINUS:DUE TO EXERCISE, INTOL TO COREG completed - Abdoulaye Tran MD ISCHEMIA;NEG NUC 11, pos stress 14 with 85% rca to be stented completed - Abdoulaye Tran MD B12 DEFICIENCY; completed - Abdoulaye Tran MD hx of Abdominal discomfort completed 06/23 - Abdoulaye Tran MD BPH active Abdoulaye Tran MD Diverticulosis, colon active Abdoulaye Tran MD covid 19;post vaccine active Abdoulaye Tran MD Hypertriglyceridemia completed - Abdoulaye Trna MD Overweight active Abdoulaye Tran MD Mitral insufficiency, mild active Abdoulaye duggan MD ? 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 Abdoulaye barlow MD STENT - BARE METAL LAD, CLOS ED ON TABLE 08 AND RESTENT, rca bm stent 14 with rv ptca for complete completed - Abdoulaye Tran MD CAD: NEG CAROTID active Abdoulaye Tran MD DI D NOT WANT 2.5, HYPERTENSION, ESSENTIAL: active Abdoulaye claros MD Hyperlipidemia;lpa 50 active Abdoulaye Tran MD ENCOUNTERS Date Type Provider Location Encounter Diag nosis - In-person encounter Office Visit Abdoulaye Tran MD [facility] - In-person encounter Office Visit Abdoulaye Tran MD [facility] HYPERTENSION, ESSENTIAL:CAD: NEG CAROTID - In-person encounter Office Visit Abdoulaye Tran MD [facility] - In-person encounter Office Visit Abdoulaye Tran MD [facility] - In-person encounter Office Visit Abdoulaye Tran MD [facility] CAD: NEG CAROTIDDiverticulosis, colonBPH - In-person encounter Office Visit Abdoulaye Tran MD [facility] covid 19;post vaccine - In-person encounter Office Visit Abdoulaye Tran MD [facility] B12 DEFICIENCY;Diastolic dysfunctionHypertriglyceridemiacovid 19;post vaccine - In-person encounter Office Visit Joon oBone MD [facility] - In-person encounter Office Visit Abdoulaye Tran MD [facility] Office STENT - BARE METAL LAD, CLOSED ON TABLE 08 AND RESTENT, rca bm stent 14 with rv ptca for completeDiastolic dysfunctionhx of Abdominal discomfort? Sleep apneaMitral insufficiency, mildOverweight - In-person encounter Office Visit Abdoulaye Tran MD [facility] - In-person encounter Office Visit Abdoulaye Tran MD [facility] Hyperlipidemia;lpa 50Screening - In-person encounter Office Visit Abdoulaye Tran MD [facility] Diastolic dysfunctionMitral regurgitation, mildhx of Abdominal discomfort - In-person encounter Office Visit Abdoulaye Tran MD [facility] Hyperlipidemia;lpa 50Screening - In-person encounter Office Visit Abdoulaye Tran MD [facility] Diastolic dysfunctionAortic valve sclerosis - In-person encounter Office Visit Ruthie Carrero MD [facility] - In-person encounter Office Visit Abdoulaye Tran MD [facility] - In-person encounter Office Visit Abdoulaye Tran MD [facility] Hyperlipidemia;lpa 50B12 DEFICIENCY; - In-person encounter Office Visit Abdoulaye Tran MD [facility] Hyperlipidemia;lpa 50HYPERTENSION, ESSENTIAL:ANEMIA, B12 DEFICIENCY;PER DR CALVIN12 DEFICIENCY; - In-person encounter Office Visit Abdoulaye Tran MD [facility] Hyperlipidemia;lpa 50BRADYCARDIA SINUS:DUE TO EXERCISE, INTOL TO COREGISCHEMIA;NEG NUC 11, pos stress 14 with 85% rca to be stented - In-person encounter Office Visit Abdoulaye Tran MD [facility] Hyperlipidemia;lpa 50AMI SUBENDOCARDIAL 2008LOW HDL;ON SIMCOR 1000/20, GREAT 2010ISCHEMIA;NEG NUC 11, pos stress 14 with 85% rca to be stented - In-person encounter Office Visit Abdoulaye Tran MD [facility] Hyperlipidemia;lpa 50CAD: NEG CAROTIDSTENT - BARE METAL LAD, CLOSED ON TABLE 08 AND RESTENT, rca bm stent 14 with rv ptca for completeBRADYCARDIA SINUS:DUE TO EXERCISE, INTOL TO COREGAMI SUBENDOCARDIAL 2007 - In-person encounter Office Visit Abdoulaye Tran MD [facility] Hyperlipidemia;lpa 50CAD: NEG CAROTIDSTENT - BARE METAL LAD, CLOSED ON TABLE 08 AND RESTENT, rca bm stent 14 with rv ptca for completeBRADYCARDIA SINUS:DUE TO EXERCISE, INTOL TO COREGAMI SUBENDOCARDIAL 2007IMMUNE THROMBOCYTOPENIC PURPURA;PRE DATES PLAVIXLOW HDL;ON SIMCOR 1000/20, GREAT 2009 - In-person encounter Office Visit Abdoulaye Tran MD [facility] Hyperlipidemia;lpa 50HYPERTENSION, ESSENTIAL:CAD: NEG CAROTIDSTENT - BARE METAL LAD, CLOSED ON TABLE 08 AND RESTENT, rca bm stent 14 with rv ptca for completeBRADYCARDIA SINUS:DUE TO EXERCISE, INTOL TO COREGAMI SUBENDOCARDIAL 2007 VITAL SIGNS Date Observation Value Provider Body Mass Index (Ratio) 28.12 kg/m2 Marcus Tran MD blood pressure, diastolic 77 mm[Hg] Franc Willis blood pressure, systolic 120 mm[Hg] Sunshine Willis oxygen saturation, oximetry 97 % Dayanara Willis pulse rate 85 /min Dayanara [facility] weight E&M 169 [lb_av] Dayanara [facility] height E&M 65 [in_i] Dayanara [facility] Body Mass Index (Ratio) 28.62 kg/m2 Marcus Tran MD blood pressure, diastolic 81 mm[Hg] Mi dre Pratt blood pressure, systolic 135 mm[Hg] Carson missy Pratt oxygen saturation, oximetry 97 % Lela Pratt pulse rate 74 /min Lela [facility] blood pressure, cuff size large Sydney erickson [place] respiratory rate E&M 14 /min Dolores brenda [place] weight E&M 172 [lb_av] Lela Cobb d height E&M 65 [in_i] Lela [facility]iann Body Mass Index (Ratio) 28.62 kg/m2 Marcus Tran MD blood pressure, diastolic 90 mm[Hg] Sydney erickson [place] blood pressure, systolic 140 mm[Hg] [facility] missy [place] oxygen saturation, oximetry 99 % Lela [place] pulse rate 68 /min Lela [facility]n weight E&M 172 [lb_av] Lela [facility]n blood pressure, cuff size large Sydney erickson [place] respiratory rate E&M 16 /min Dolores gutierrez [place] height E&M 65 [in_i] Lela Cobb mariann Body Mass Index (Ratio) 27.79 kg/m2 Marcus Tran MD blood pressure, diastolic 86 mm[Hg] St imcaela Anaya blood pressure, systolic 134 mm[Hg] Sta jayesh Anaya weight E&M 167 [lb_av] Daisha Héctor oxygen saturation, oximetry 96 % Daisha Héctor pulse rate 61 /min Daisha Héctor respiratory rate E&M 16 /min Daisha D bianca height E&M 65 [in_i] Daisha Héctor Body Mass Index (Ratio) 27.95 kg/m2 Marcus Tran MD blood pressure, diastolic -1 mm[Hg] Naty nkLogcydney blood pressure, systolic 138 mm[Hg] Melissa Chatmanogcydney blood pressure, diastolic 76 mm[Hg] Ara Brand blood pressure, systolic 138 mm[Hg] Balbina Brand respiratory rate E&M 20 /min Gilma Brand pulse rate 78 /min Gilma Brand blood pressure, cuff size regular Ara Brand oxygen saturation, oximetry 98 % Gilma Brand weight E&M 168 [lb_av] Gilma Brand height E&M 65 [in_i] Gilma Brand Body Mass Index (Ratio) 28.29 kg/m2 Marcus Tran MD blood pressure, diastolic 89 mm[Hg] Richard celestinakathrine Denia SLP blood pressure, systolic 140 mm[Hg] Brittani shama Loza SLP oxygen saturation, oximetry 96 % Katelyn Mane respiratory rate E&M 16 /min Catheri ne Brodnax pulse rate 66 /min Katelyn Brodnax weight E&M 170 [lb_av] Katelyn Mane blood pressure, cuff size regular Ca therine Brodnax height E&M 65 [in_i] Katelyn Mane Body Mass Index (Ratio) 29.12 kg/m2 Marcus Tran MD blood pressure, diastolic 70 mm[Hg] Humberto [place] blood pressure, systolic 120 mm[Hg] Angelica [place] oxygen saturation, oximetry 98 % Arlene [place] respiratory rate E&M 16 /min Dangelo [place] pulse rate 72 /min Arlene Manuel raad weight E&M 175 [lb_av] Arlene Manuel nson height E&M 65 [in_i] Arlene Manuel nson Body Mass Index (Ratio) 28.45 kg/m2 Joon Boone MD blood pressure, diastolic 80 mm[Hg] Tabby Bahena blood pressure, systolic 120 mm[Hg] Milton Quintanaafford oxygen saturation, oximetry 98 % Kelle Quintanaafford respiratory rate E&M 18 /min Kelle Barba wafford pulse rate 76 /min Kelle Quintanaafford weight E&M 171 [lb_av] Kelle Josef height E&M 65 [in_i] Kelle Quintanaafford Body Mass Index (Ratio) 28.95 kg/m2 Marcus Tran MD oxygen saturation, oximetry 97 % Chastity Alicja blood pressure, diastolic 76 mm[Hg] astity Alicja blood pressure, systolic 120 mm[Hg] Jamila stity Alicja pulse rate 78 /min [facility] respiratory rate E&M 16 /min Chastit y Alicja weight E&M 174 [lb_av] Chastity Alicja height E&M 65 [in_i] [facility] Alicja Body Mass Index (Ratio) 28.79 kg/m2 Marcus Tran MD blood pressure, diastolic 70 mm[Hg] Gabriel [facility], systolic 110 mm[Hg] Nehemiah brucelucinda Rasheed pulse rate 70 /min Ashli respiratory rate E&M 17 /min Ashli [place] oxygen saturation, oximetry 98 % Ashli Rasheed blood pressure, cuff size regular Gabriel españa weight E&M 173 [lb_av] Ashli Rasheed height E&M 65 [in_i] Ashli [place] blood pressure, diastolic 84 mm[Hg] Te onia Vandana blood pressure, systolic 130 mm[Hg] Bossman aracely Ross Body Mass Index (Ratio) 27.95 kg/m2 Marcus Tran MD blood pressure, resting Yes [place] cox O'Juanito blood pressure, diastolic 80 mm[Hg] Humberto meredith O'Juanito blood pressure, systolic 140 mm[Hg] Angelica cerna O'Juanito oxygen saturation, oximetry 98 % Alexandria O'Juanito respiratory rate E&M 16 /min Alexandria O'Juanito pulse rate 73 /min Alexandria O'Juanito weight E&M 168 [lb_av] Alexandria O'Juanito height E&M 65 [in_i] Alexandria O'Juanito blood pressure, diastolic 80 mm[Hg] Judy Taylor blood pressure, systolic 120 mm[Hg] Bree Taylor pulse rate 63 /min Melly Taylor oxygen saturation, oximetry 98 % Melly Taylor respiratory rate E&M 18 /min Melly Taylor Body Mass Index (Ratio) 28.45 kg/m2 Jes Taylor weight E&M 171 [lb_av] Melly Taylor blood pressure, diastolic 76 mm[Hg] Sa ndra Horsey blood pressure, systolic 124 mm[Hg] Valdes jacque Horsey pulse rate 82 /min Sugey Horsey oxygen saturation, oximetry 98 % Sugey Horsey respiratory rate E&M 18 /min Sugey Horsey Body Mass Index (Ratio) 28.02 kg/m2 Sand ra Horsey weight E&M 168.4 [lb_av] Sugey Horsey height E&M 65 [in_i] Abdoulaye Waite blood pressure, diastolic 80 mm[Hg] Talat Bernal blood pressure, systolic 131 mm[Hg] Corky Bernal Body Mass Index (Ratio) 27.62 kg/m2 Marcus Tran MD pulse rate 66 /min Amara Bernal oxygen saturation, oximetry 98 % Amara Bernal respiratory rate E&M 16 /min Amara Bernal weight E&M 166 [lb_av] Amara Bernal oxygen saturation, oximetry 98 % Ruthie Carrero MD pulse rate 83 /min Ruthie Carrero MD blood pressure, diastolic 90 mm[Hg] To ulises Carrero MD blood pressure, systolic 138 mm[Hg] Ton radha Carrero MD blood pressure, diastolic 91 mm[Hg] Ta carlota Bernal blood pressure, systolic 148 mm[Hg] Corky Bernal Body Mass Index (Ratio) 39.04 kg/m2 Albertina Bernal pulse rate 72 /min Amara Bernal oxygen saturation, oximetry 97 % Amara Bernal respiratory rate E&M 15 /min Amara Bernal weight E&M 168 [lb_av] Amara Bernal blood pressure, diastolic 42 mm[Hg] Ca hussein Carver blood pressure, systolic 119 mm[Hg] Can dacbrenda HardinWen Body Mass Index (Ratio) 38.35 kg/m2 [facility] franca respiratory rate E&M 15 /min [facility] blood pressure, diastolic 68 mm[Hg] As [facility] franca blood pressure, systolic 124 mm[Hg] [facility] pulse rate 77 /min [facility] oxygen saturation, oximetry 98 % [facility] weight E&M 165 [lb_av] Radha [facility] Body Mass Index (Ratio) 37.56 kg/m2 Crystal alida Pedro blood pressure, diastolic 89 mm[Hg] Ch erese Pedro blood pressure, systolic 147 mm[Hg] Mandy rese Pedro pulse rate 68 /min Irinaalida Pedro oxygen saturation, oximetry 99 % Irina Pedro respiratory rate E&M 16 /min Irinaalida Pedro weight E&M 161 [lb_av] Irina Pedro blood pressure, diastolic 85 mm[Hg] Arnold Pedro blood pressure, systolic 127 mm[Hg] Mandy Pedro pulse rate 61 /min Irina Pedro oxygen saturation, oximetry 98 % Irina Pedro respiratory rate E&M 14 /min Irina Pedro weight E&M 156 [lb_av] Irina Pedro height E&M 55 [in_i] Irina Pedro blood pressure, diastolic, left arm 78 mm [Hg] Amarilis Zuñiga MA blood pressure, systolic, left arm 127 mm [Hg] Amarilis Zuñiga MA blood pressure, diastolic, right arm 86 m m[Hg] Amarilis Zuñiga MA blood pressure, systolic, right arm 139 m m[Hg] Amarilis Zuñiga MA oxygen saturation, oximetry 98 % Amarilis Zuñiga MA blood pressure, diastolic 86 mm[Hg] Lisa Zuñiga MA blood pressure, systolic 139 mm[Hg] Rene Zuñiga MA pulse rate 68 /min Amarilis Zuñiga MA respiratory rate E&M 14 /min Amarilis Zuñiga MA weight E&M 165 [lb_av] Amarilis Zuñiga MA blood pressure, diastolic, left arm 77 mm [Hg] Amarilis Zuñiga MA blood pressure, systolic, left arm 126 mm [Hg] Amarilis Zuñiga MA blood pressure, diastolic, right arm 76 m m[Hg] Amarilis Zuñiga MA blood pressure, systolic, right arm 121 m m[Hg] Amarilis Zuñiga MA oxygen saturation, oximetry 97 % Amarilis Zuñiga MA blood pressure, diastolic 77 mm[Hg] Lisa Zuñiga MA blood pressure, systolic 126 mm[Hg] Rene Zuiñga MA pulse rate 78 /min Amarilis Zuñiga MA respiratory rate E&M 16 /min Amarilis Zuñiga MA weight E&M 161 [lb_av] Amarilis Zuñiga [place] blood pressure, diastolic, left arm 89 mm [Hg] Jerome [place] blood pressure, systolic, left arm 140 mm [Hg] Jerome [place] blood pressure, diastolic, right arm 88 m m[Hg] Jerome [place] blood pressure, systolic, right arm 148 m m[Hg] Jerome [place] blood pressure, diastolic 88 mm[Hg] Rehana seph [place] blood pressure, systolic 148 mm[Hg] Judah eph [place] pulse rate 56 /min [facility], oximetry 100 % [facility] rate E&M 16 /min [place] weight E&M 163.31 [lb_av] [facility] blood pressure, diastolic 86 mm[Hg] Lisa Zuñiga [place] blood pressure, systolic 144 mm[Hg] Rene Zuñiga [place] pulse rate 62 /min Amarilis Zuñiga [place] oxygen saturation, oximetry 99 % Amarilis Zuñiga [place] respiratory rate E&M 18 /min Amarilis Zuñiga [place] weight E&M 164 [lb_av] Amarilis Zuñiga [place] ALLERGIES Allergy Name Onset Date Reaction Criticality Status EFFIENT NOSE BLEED Low Criticality active COREG lorri Low Criticality active RESULTS Date Observation Value Provider Reference Range Interpretation Location prothrombin time (patient) 11.3 s [facility] 9.1-12.0 international normalized ratio (INR) 1.1 [facility] 0.9-1.2 lipoprotein, beta, serum, point, quantitative, calculated 62 mg/dL [facility] 0-99 HDL cholesterol, serum 39 mg/dL [facility] >39 Low triglyceride, serum, random 94 mg/dL [facility] 0-149 cholesterol, serum 119 mg/dL [facility] 916-475 1326/01 /25 calcium, serum 9.8 mg/dL [facility] 8.6-10.2 carbon dioxide, venous blood 23 mmol/L [facility] 20-29 chloride, serum 108 mmol/L [facility] 96-106 High potassium, serum 4.6 mmol/L [facility] 3.5-5.2 sodium, serum 145 mmol/L [facility] 134-144 High urea nitrogen/creatinine ratio, serum 17 [facility] 10-24 creatinine, serum 1.15 mg/dL [facility] 0.76-1.27 urea nitrogen, blood 20 mg/dL [facility] 8-27 blood glucose, random 106 mg/dL [facility] 70-99 High basophil count, absolute 0.1 x10E3/uL [facility] 0.0-0.2 Eosinophil Absolute Count 0.2 X10E3/UL [facility] 0.0-0.4 monocyte count, blood, automated 0.5 X10E3/UL [facility] 0.1-0.9 lymphocyte count, blood, automated 1.9 X10E3/UL [facility] 0.7-3.1 Absolute Neutrophils 3.3 X10E3/UL [facility] 1.4-7.0 basophils as percent of blood leukocytes 1 % [facility] Not Estab. eosinophils as percent of blood leukocytes 3 % [facility] Not Estab. monocytes as percent of blood leukocytes 9 % [facility] Not Estab. lymphocytes as percent of blood leukocytes 31 % [facility] Not Estab. neutrophils as percent of blood leukocytes 56 % [facility] Not Estab. platelet count 118 X10E3/UL [facility] 150-450 Low red blood cell distribution width 12.9 % [facility] 11.6-15.4 mean corpuscular hemoglobin concentration, RBC 33.8 G/DL [facility] 31.5-35.7 mean corpuscular hemoglobin, RBC 31.1 pg [facility] 26.6-33.0 mean corpuscular volume, RBC 92 fL [facility] 79-97 hematocrit, blood 47.3 % [facility] 37.5-51.0 hemoglobin, blood 16.0 g/dL [facility] 13.0-17.7 erythrocyte (RBC) count 5.14 X10E6/UL [facility] 4.14-5.80 leukocyte count, blood 6.0 X10E3/UL [facility] 3.4-10.8 pro brain natriuretic peptide 53 pg/mL [facility] 0-486 B-12, serum 470 pg/mL [facility] 232-1245 lipoprotein, beta, serum, point, quantitative, calculated 70 mg/dL [facility] 0-99 very low density lipoproteins 33 mg/dL [facility] 5-40 HDL cholesterol, serum 35 mg/dL [facility] >39 Low triglyceride, serum, random 165 mg/dL [facility] 0-149 High cholesterol, serum 138 mg/dL [facility] 620-840 7504/02 /27 calcium, serum 9.7 mg/dL [facility] 8.6-10.2 carbon dioxide, venous blood 22 mmol/L [facility] 20-29 chloride, serum 107 mmol/L [facility] 96-106 High potassium, serum 4.2 mmol/L [facility] 3.5-5.2 sodium, serum 147 mmol/L [facility] 134-144 High urea nitrogen/creatinine ratio, serum 11 [facility] 10-24 eGFR if 71 mL/min/{1.73_ m2} [facility] >59 eGFR if not 61 mL/min/{1.73_ m2} [facility] >59 creatinine, serum 1.19 mg/dL [facility] 0.76-1.27 urea nitrogen, blood 13 mg/dL [facility] 8-27 blood glucose, random 86 mg/dL [facility] 65-99 hemoglobin A1C, blood, as % of total hemoglobin 5.5 % [facility] 4.0 - 6.0 vitamin b12, serum 1774.0 pg/mL [facility] 211.0 - 946.0 High prostate specific antigen 2.63 ng/mL [facility] triglyceride, serum, fasting 100 mg/dL [facility] HDL cholesterol, serum 43 mg/dL [facility] LDL cholesterol, serum 66 mg/dL [facility] cholesterol, serum 129 mg/dL [facility] anion gap, serum 11.8 [facility] globulins, serum, total 2.4 g/dL [facility] Estimated Glomerular Filtration Rate (calc) 62 mL/min/{1.73_ m2} [facility] protein, total, serum 6.6 g/dL [facility] albumin, serum 4.2 g/dL [facility] bilirubin, serum, total 0.80 mg/dL [facility] alkaline phosphatase, serum 63 1/L [facility] alanine aminotransferase (SGPT), serum 18 1/L [facility] aspartate aminotransferase (SGOT), serum 25 1/L [facility] calcium, serum 10.0 mg/dL [facility] blood glucose, fasting 96 mg/dL [facility] creatinine, serum 1.18 mg/dL [facility] urea nitrogen, blood 14 mg/dL [facility] carbon dioxide, serum, total 30 mmol/L [facility] chloride, serum 107 mmol/L [facility] potassium, serum 4.8 mmol/L [facility] sodium, serum 144 mmol/L [facility] platelet count 107 10*3/uL [facility] red blood cell distribution width 13.0 % [facility] mean corpuscular hemoglobin concentration, RBC 34.0 g/dL [facility] mean corpuscular hemoglobin, RBC 32.0 pg [facility] mean corpuscular volume, RBC 94.3 fL [facility] hematocrit, blood 47.7 % [facility] hemoglobin, blood 16.2 g/dL [facility] erythrocyte (RBC) count 5.06 10*6/mm3 [facility] leukocyte count, blood 6.01 10*3/mm3 [facility] globulins, serum, total 2.3 g/dL [facility] Estimated Glomerular Filtration Rate (calc) >60 [facility] albumin/globulin ratio, serum 2.0 [facility] protein, total, serum 6.8 g/dL [facility] albumin, serum 4.5 g/dL [facility] bilirubin, serum, total 0.7 mg/dL [facility] alkaline phosphatase, serum 83 1/L [facility] alanine aminotransferase (SGPT), serum 20 1/L [facility] aspartate aminotransferase (SGOT), serum 16 1/L [facility] calcium, serum 9.6 mg/dL [facility] blood glucose, fasting 105 mg/dL [facility] creatinine, serum 1.02 mg/dL [facility] urea nitrogen, blood 18 mg/dL [facility] carbon dioxide, serum, total 27 mmol/L [facility] chloride, serum 111 mmol/L [facility] potassium, serum 5.1 mmol/L [facility] sodium, serum 144 mmol/L Lorin Eddie alanine aminotransferase (SGPT), serum 16 1/L [facility] 9-60 Normal aspartate aminotransferase (SGOT), serum 20 1/L [facility] 10-35 Normal alkaline phosphatase, serum 66 1/L [facility] 40-115 Normal bilirubin, serum, total 0.7 mg/dL [facility] 0.2-1.2 Normal albumin/globulin ratio, serum 2.0 (calc) [facility] 1.0-2.1 Normal globulins, serum, total 2.3 G/DL (CALC) [facility] 2.1-3.7 Normal albumin, serum 4.5 g/dL [facility] 3.6-5.1 Normal protein, total, serum 6.8 g/dL [facility] 6.2-8.3 Normal calcium, serum 9.8 mg/dL [facility] 8.6-10.2 Normal carbon dioxide, venous blood 29 mmol/L [facility] 21-33 Normal chloride, serum 108 mmol/L [facility] 98-110 Normal potassium, serum 4.5 mmol/L [facility] 3.5-5.3 Normal sodium, serum 145 mmol/L [facility] 135-146 Normal urea nitrogen/creatinine ratio, serum NOT APPLICABLE (calc) [facility] 6-22 creatinine, serum 1.30 mg/dL [facility] 0.50-1.30 Normal urea nitrogen, blood 20 mg/dL [facility] 7-25 Normal blood glucose, random 97 mg/dL [facility] 65-99 Normal cholesterol/HDL ratio, serum, percent 2.7 (calc) [facility] < OR = 5.0 Normal LDL cholesterol, serum 49 MG/DL (CALC) [facility] <130 Normal HDL cholesterol, serum 42 mg/dL [facility] > OR = 40 Normal cholesterol, serum 112 mg/dL [facility] 125-200 Low triglyceride, serum, fasting 107 mg/dL [facility] <150 Normal HISTORY OF MEDICATION USE Medication Status Instructions Dates Provider [facility] mg tablet active TAKE 1 TABLET BY MOUTH EVERY DAY Jyoti Guerrero losartan 100 mg tablet active TAKE 1 TABLET BY MOUTH EVERY DAY Mary Baxter clopidogrel 75 mg tablet active TAKE 1 TABLET BY MOUTH EVERY DAY Jyoti Guerrero atorvastatin 40 mg tablet completed Take 1 tablet by mouth once a day TAKE 1 TABLET BY MOUTH EVERY DAY - Mary Baxter losartan 100 mg tablet completed TAKE ONE TABLET BY MOUTH EVERYDAY - Mary Baxter atorvastatin 40 mg tablet completed TAKE 1 TABLET BY MOUTH EVERY DAY - Latoya Bradley atorvastatin 40 mg tablet completed Take 1 tablet by mouth at bedtime - Gilma Otero NP clopidogrel 75 mg tablet completed TAKE ONE TABLET BY MOUTH ONCE DAILY - Lela Pratt losartan 100 mg tablet completed Take 1 tablet by mouth once a day - Shital Baxter RN losartan 50 mg tablet completed 2 tablet by mouth once a day = 100mg - Ez Sauceda RN losartan 50 mg tablet completed tablet 2 tabs in the AM = 100mg - Ez Sauceda RN losartan 100 mg tablet completed TAKE 1 TABLET BY MOUTH EVERY DAY - Arlene Park clopidogrel 75 mg tablet completed Take 1 tablet by mouth once a day - Connie Morley Viagra 100 mg tablet completed 1 tablet by mouth once a day as needed - Abdoulaye SOLIZCEPLokesh 1 GM ORAL CAPSULE completed two tabs twice a day - Arlene Park BUPROPION HCL 100 MG ORAL TABLET completed 1 tab by mouth daily, if not effective after 1 week may increase to 1 tab twice daily - Arlene Park NALTREXONE HCL 50 MG ORAL TABLET completed 1/2 tab by mouth daily, if not effective after 1 week may increase to 1/2 tab twice daily - Arlene Park losartan 100 mg tablet completed TAKE ONE TABLET BY MOUTH ONCE DAILY - Arlene Park atorvastatin 40 mg tablet completed 1 tablet by mouth once a day - Abdoulaye Tran MD NITROLINGUAL 0.4 MG/SPRAY TRANSLINGUAL SOLUTION completed One spray as needed for chest discomfort - Deja Barroso RN CLOPIDOGREL 75 MG TABLET completed TAKE ONE TABLET BY MOUTH ONCE DAILY - Abdoulaye Tran MD CIALIS 20 MG ORAL TABLET completed ONE or 1/2 TAB. DAILY NEEDED - Arlene Park may use generic EFFIENT 10 MG ORAL TABLET completed 1 tab A DAY - Ruthie Carrero MD METAMUCIL CAPSULE completed as needed - Amara Bernal VITAMIN B-12 1000 MCG ORAL TABLET completed THREE TIMES A WEEK - Ashli Iqbal VITAMIN B-12 1000 MCG ORAL TABLET completed One tablet daily - Irina Pedro VITAMIN B-12 TABS completed 1 tablet by mouth daily - Amarilis Zuñiga MA SIMCOR 1000-20 MG ORAL TABLET EXTENDED RELEASE 24 HOUR completed ONE TAB. DAILY - Dispense as written - Abdoulaye Tran MD PLAVIX 75 MG ORAL TABLET completed ONE TAB. DAILY - Amara Bernal DIOVAN 160 MG ORAL TABLET completed ONE TAB. DAILY - Jennifer Powell aspirin 81 mg tablet,delayed release (DR/EC) active tablet by mouth once a day Abdoulaye Tran MD SOCIAL HISTORY Date Observation Value Provider drug use no Abdoulaye Waite passive cigarette sm edna exposure no Abdoulaye Tran MD smoking status Never smoker Abdoulaye Tran MD Exercise counseling Yes Lela Terence physical exercise, f requency, days per week yes Lela Pratt caffeine use, averag e drinks per day yes Lela Terence smoking status Never smoker Lela Reyes and drug use no Lela Reyesfranca waite passive cigarette sm edna exposure no Lela Reyesand Exercise counseling Yes Raina Loza NP physical exercise, f requency, days per week yes Lela Pratt caffeine use, averag e drinks per day yes Lela Reyesand smoking status Never smoker Lela Reyes and drug use no Lela Reyesfranca waite passive cigarette sm edna exposure no Lela Reyesand physical exercise, f requency, days per week yes Daisha Anaya caffeine use, averag e drinks per day yes Daisha Héctor passive cigarette sm edna exposure no Daisha Héctor smoking status Never smoker Daishajayesh Anaya social history E&M Marital Statu s: L guy with family/friends E thnicity: Smoking History: Pina caban has never smoked. Abdoulaye Tran MD social history reviewed E&M revi ewed - no changes required Abdoulaye Tran MD smoking status Never smoker Gilma Cathie social history reviewed E&M revi ewed - no changes required Raina Loza NP physical exercise, f requency, days per week yes Katelyn Amne caffeine use, averag e drinks per day yes Katelyn Mane passive cigarette sm edna exposure no Katelyn Mane smoking status Never smoker Katelyn Carmen s social history E&M Marital Statu s: L guy with family/friends E thnicity: Smoking History: Pina caban has never smoked. Abdoulaye Tran MD social history reviewed E&M revi ewed - no changes required Abdoulaye Tran MD physical exercise, f requency, days per week yes Arlene Park caffeine use, averag e drinks per day yes Arlene Park passive cigarette sm edna exposure no Arlene Park smoking status Never smoker Arlene Zazueta physical exercise, f requency, days per week yes Kelle Quintanaafford caffeine use, averag e drinks per day yes Kelle Josef passive cigarette sm edna exposure no Kelle Josef smoking status Never smoker Kelle Willisor mariann social history E&M Marital Statu s: L guy with family/friends E thnicity: Smoking History: Pina caban has never smoked. Abdoulaye Tran MD social history reviewed E&M revi ewed - no changes required Abdoulaye Tran MD physical exercise, f requency, days per week yes [facility] Alicja alcohol use, average drinks per day social basis only [facility], averag e drinks per day yes [facility] drug use no [facility] Alicja passive cigarette sm edna exposure no [facility] Alicja smoking status Never smoker [facility] e number of grandchildren Abdoulaye Barragan NP smoking status Never smoker Tesha Ross social history E&M Marital Statu s: L guy with family/friends E thnicity: Smoking History: Pina caban has never smoked. Abdoulaye Tran MD social history reviewed E&M revi ewed - no changes required Abdoulaye Tran MD smoking status Never smoker Alexandria Coulter social history reviewed E&M revi ewed - no changes required Abdoulaye Tran MD smoking status Never smoker Melly jane social history reviewed E&M revi ewed - no changes required Abdoulaye Tran MD physical exercise, f requency, days per week yes Sugey Horsey alcohol use, average drinks per day social basis only Sugey Horsey caffeine use, averag e drinks per day yes Sugey Horsey drug use no Sugey Horsey passive cigarette sm edna exposure no Sugey Horsey smoking status Never smoker Sugey Horsey social history reviewed E&M revi ewed - no changes required Abdoulaye Tran MD social history reviewed E&M revi ewed - no changes required Ruthie Carrero MD social history reviewed E&M i ewed - no changes required Abdoulaye Tran MD smoking status Never smoker Radha Garcia social history reviewed E&M reviewed Abdoulaye Tran MD drug use no Abdoulaye Waite passive cigarette sm edna exposure no Abdoulaye Tran MD social history reviewed E&M reviewed Abdoulaye Tran MD smoking status never smoker Irina jacinto social history reviewed E&M reviewed Abdoulaye Tran MD social history reviewed E&M reviewed Abdoulaye Tran MD social history reviewed E&M reviewed Abdoulaye Tran MD social history E&M Marital Statu s: L guy with family/friends E thnicity: Abdoulaye Tran MD social history reviewed E&M reviewed Abdoulaye Tran MD physical exercise, f requency, days per week yes [employer] caffeine use, averag e drinks per day yes [employer] alcohol use, average drinks per day social basis only [employer] smoking status Non-smoker [employer] FUNCTIONAL STATUS Date Observation Value Provider HRA, CV Assess/Plan, Angina (inactive) Management Plan continue current therapy Abdoulaye Tran MD HRA, CV Assess/Plan, Angina (inactive) Management Plan continue current therapy Abdoulaye Tran MD HRA, CV Assess/Plan, Angina (inactive) Management Plan continue current therapy Raina Loza NP HRA, CV Assess/Plan, Angina (inactive) Management Plan continue current therapy Abdoulaye Tran MD HRA, CV Assess/Plan, Angina (inactive) Management Plan continue current therapy Abdoulaye Tran MD HRA, CV Assess/Plan, Angina (inactive) Management Plan continue current therapy Abdoulaye Tran MD HRA, CV Assess/Plan, Angina (inactive) Management Plan continue current therapy Carlotta Barragan NP periodic limb movement index absent (0) Tesha Ross HRA, CV Assess/Plan, Angina (inactive) Management Plan continue current therapy Abdoulaye Tran MD periodic limb movement index absent (0) Orquidea Carver MENTAL STATUS Date Observation Value Provider assessment of judgme nt and insight E&M Alert and oriented to time, place and person. Mood and affect are normal. Abdoulaye Tran MD assessment of judgme nt and insight E&M Alert and oriented to time, place and person. Mood and affect are normal. Abdoulaye Tran MD assessment of judgme nt and insight E&M Alert and oriented to time, place and person. Mood and affect are normal. Abdoulaye Tran MD assessment of judgme nt and insight E&M Alert and oriented to time, place and person. Mood and affect are normal. Abdoulaye Tran MD assessment of judgme nt and insight E&M Alert and oriented to time, place and person. Mood and affect are normal. Abdoulaye Tran MD assessment of judgme nt and insight E&M Alert and oriented to time, place and person. Mood and affect are normal. 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 Take one tablet by mouth once daily Aspirin 81 Mg Tablet,delayed Release (dr/ec) (Aspirin) ..... Tablet by mouth once a day May Nalluri SLP [id number],C, B P today: 134/86 P rior BP: 138/-1 (07/13/2022) His updated medication list for this problem includes: Losartan 100 Mg Tablet (Losartan) ..... Take one tablet by mouth everyday Aspirin 81 Mg Tablet,delayed Release (dr/ec) (Aspirin) ..... Tablet by mouth once a day May Nalluri SLP [id number],C,L p(a) 52.5 His updated medication list for this problem includes: Atorvastatin 40 Mg Tablet (Atorvastatin) ..... Take 1 tablet by mouth once a day take 1 tablet by mouth every day May Nalluri NATASHA [id number],C, m il pr and mr and tr May Nalluri SLP [id number],C, N EG PSA May Periluri NATASHA [id number],C,60% Abdoulaye duggna MD [id number],C,mil pr and mr and tr Abdoulaye Tran MD [id number],C,ef 55 and pro 53 Abdoulaye Tran MD [id number],B, H is updated medication list for this problem includes: Atorvastatin 40 Mg Tablet (Atorvastatin) ..... 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 His updated medication list for this problem includes: Atorvastatin 40 Mg Tablet (Atorvastatin) ..... 1 tablet by mouth once a day Raina Loza SLP [id number],C,B P today . pt states that BP fluctuates at home. will arrange for RPM. Raina Loza SLP [id number],C,l ast cath 2013 MBS RCA EF 35% ECHO 07/2020 EF 55%. continues on asa, plavix, losartan. allergy to coreg. 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 (+) COVID 05/2021, mild symptoms Raina Loza SLP Cardiology: N EG PSA Abdoulaye Tran MD Cardiology Abdoulaye Tran MD Cardiology Abdoulaye Tran MD Cardiology Abdoulaye Tran MD Cardiology: H is updated medication list for this problem includes: Losartan 100 Mg Tablet (Losartan) ..... Take 1 tablet by mouth every day Aspirin 81 Mg Tablet,delayed Release (dr/ec) (Aspirin) ..... Tablet by mouth once a day BP today: 120/77 P rior BP: 135/81 (07/17/2023) Prior 10 Yr Risk Heart Disease: N/A (03/04/2014) Labs Reviewed: C reat: 1.15 (05/31/2023) C hol: 119 (05/31/2023) HDL: 39 (05/31/2023) LDL: 62 (05/31/2023) T (05/31/2023) Abdoulaye Tran MD Cardiology:125 Abdoulaye Tran MD Cardiology: B 12 AUTO CORRETED n eg ihs A 1C 5.5 N ML UACR N EG EGFR n eg vd N EG HEP C and hep panel Abdoulaye Tran MD Cardiology Abdoulaye Tran MD Cardiology: m ult old stents open, after abnl pet had vf during rca injectons Abdoulaye Tran MD Cardiology: e f 60% Abdoulaye Tran MD Cardiology Abdoulaye Tran MD Cardiology: e f 60% Abdoulaye Tran MD :ef 60% Abdoulaye Tran MD Cardiology Abdoulaye Tran MD Cardiology: N EG PSA Abdoulaye Tran MD Cardiology: H is updated medication list for this problem includes: Losartan 100 Mg Tablet (Losartan) ..... Take one tablet by mouth everyday Aspirin 81 Mg Tablet,delayed Release (dr/ec) (Aspirin) ..... Tablet by mouth once a day BP today: 135/81 P rior BP: 140/90 (05/22/2023) Prior 10 Yr Risk Heart Disease: N/A (03/04/2014) Labs Reviewed: C reat: 1.15 (05/31/2023) C hol: 119 (05/31/2023) HDL: 39 (05/31/2023) LDL: 62 (05/31/2023) T (05/31/2023) Abdoulaye Tran MD Cardiology Abdoulaye Tran MD Cardiology Abdoulaye Tran MD Cardiology: m ild pr and tr on echo, no mr on cath Abdoulaye Tran MD Cardiology: B 12 AUTO CORRETED n eg ihs A 1C 5.5 N ML UACR N EG EGFR n eg vd N EG HEP C Abdoulaye Tran MD Cardiology: 1 14 Abdoulaye Tran MD Cardiology Abdoulaye Tran MD Cardiology: 4 0% BY CATH NML PRO l antony 11 Abdoulaye Tran MD Cardiology: m ult old stents open, after abnl pet had vf during rca injectons Abdoulaye Tran MD :mult old stents open had vf dur ing rca injectons Abdoulaye Tran MD :mild pr and tr on echo, no mr o n cath Abdoulaye Tran MD :40% BY CATH NML PRO Abdoulaye claros MD reg cathres:114 Abdoulaye Tran MD Cardiology: 6 0% N ml pro BNP 53 Raina Loza NP Cardiology: B 12 AUTO CORRETED n eg ihs A 1C 5.5 N ML UACR N EG EGFR NEG HEP C Raina Loza NP Cardiology:PET SCAN: 1. Normal resting ECG. 2. Normal Regadenoson ECG with no ischemic ST or T changes, followng vasodilator infusion. 3 . No arrhythmias seen during stress portion of the exam. 4. Normal left ventricle size. 5. Left Ventricular Ejection Fraction is 55 %. TID: 1.15. 6 . Abnormal perfusion imaging in the apex and apical inferior region with a moderate perfusion defect, which is medium in size and and has complete reversibility. see #1 Raina Loza NP Cardiology:PET scan: 1. Normal resting ECG. 2. Normal Regadenoson ECG with no ischemic ST or T changes, followng vasodilator infusion. 3. No arrhythmias seen during stress portion of the exam. 4. Normal left ventricle size. 5. Left Ventricular Ejection Fraction is 55 %. TID: 1.15. 6 . Abnormal perfusion imaging in the apex and apical inferior region with a moderate perfusion defect, which is medium in size and and has complete reversibility. will plan LHC. explained procedure in detail. all questions and concerns addressed. Pt in agreement to proceed with LHC as planned Raina Loza NP Cardiology:CHOL: 138 (07/03/2018) LDL: 70 (07/03/2018) HDL: 35 (07/03/2018) T (07/03/2018) His updated medication list for this problem includes: Atorvastatin 40 Mg Tablet (Atorvastatin) ..... Take 1 tablet by mouth once a day take 1 tablet by mouth every day Raina Loza NP Cardiology: B P today: 140/90 P rior BP: 134/86 (12/19/2022) Prior 10 Yr Risk Heart Disease: N/A (03/04/2014) Labs Reviewed: C reat: 1.19 (07/03/2018) C hol: 138 (07/03/2018) HDL: 35 (07/03/2018) LDL: 70 (07/03/2018) T (07/03/2018) His updated medication list for this problem includes: Losartan 100 Mg Tablet (Losartan) ..... Take one tablet by mouth everyday Aspirin 81 Mg Tablet,delayed Release (dr/ec) (Aspirin) ..... 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 Take one tablet by mouth once daily Aspirin 81 Mg Tablet,delayed Release (dr/ec) (Aspirin) ..... Tablet by mouth once a day May Whittlumarck KAUR Cardiology: B P today: 134/86 P rior BP: 138/-1 (07/13/2022) His updated medication list for this problem includes: Losartan 100 Mg Tablet (Losartan) ..... Take one tablet by mouth everyday Aspirin 81 Mg Tablet,delayed Release (dr/ec) (Aspirin) ..... Tablet by mouth once a day May Periluri SLP Cardiology:Lp(a) 52. 5 His updated medication list for this problem includes: Atorvastatin 40 Mg Tablet (Atorvastatin) ..... Take 1 tablet by mouth once a day take 1 tablet by mouth every day May Periluri NATASHA Cardiology: m il pr and mr and tr May Whittlumarck KAUR Cardiology: N EG PSA May Sommer NP :60% Abdoulaye Tran MD :mil pr and mr and tr Abdoulaye lieberman MD :ef 55 and pro 53 Abdoulaye Tran MD Cardiology: H is updated medication list for this problem includes: Atorvastatin 40 Mg Tablet (Atorvastatin) ..... 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 His updated medication list for this problem includes: Atorvastatin 40 Mg Tablet (Atorvastatin) ..... 1 tablet by mouth once a day Raina Loza NP Cardiology:BP today 14/089. pt states that BP fluctuates at home. will arrange for RPM. Raina Loza NP Cardiology:last cath 2013 MBS RCA EF 35% ECHO 07/2020 EF 55%. continues on asa, plavix, losartan. allergy to coreg. 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 (+) COVID 05/2021, mild symptoms Raina Bhatnohemi SLP Cardiology:DOSES NOT WANT RX Austin Tran MD Cardiology:137 Abdoulaye Tran MD Cardiology: H is updated medication list for this problem includes: Losartan Potassium 100 Mg Tab (Losartan potassium) ..... Take one tablet by mouth once daily Aspirin Ec Low Dose 81 Mg Oral Tablet Delayed Release (Aspirin) ..... One a day BP today: 120/70 P rior BP: 120/80 (07/15/2019) Prior 10 Yr Risk Heart Disease: N/A (03/04/2014) Labs Reviewed: C reat: 1.19 (07/03/2018) C hol: 138 (07/03/2018) HDL: 35 (07/03/2018) Abdoulaye Tran MD Cardiology:MILD Abdoulaye Tran MD Cardiology: u p to 50 Abdoulaye Tran MD Cardiology:B12 AUTO CORRETED n eg ihs A 1C 5.5 N ML UACR Abdoulaye Tran MD Cardiology:neg nuc 2 020 h as mutl stentets for compltee Abdoulaye Tran MD Cardiology Abdoulaye Tran MD Cardiology Abdoulaye Tran MD Cardiology:Asymptomatic. Joon love MD Cardiology:On statin s and vascepa. Recent lipid profile done by PCP to be reviewed. H is updated medication list for this problem includes: Vascepa 1 Gm Oral Capsule (Icosapent ethyl) ..... Two tabs twice a day Lipitor 40 Mg Oral Tablet (Atorvastatin calcium) ..... Every other day Joon Boone MD Cardiology:Well cont rolled. H is updated medication list for this problem includes: Losartan Potassium 100 Mg Tab (Losartan potassium) ..... Take one tablet by mouth once daily Aspirin Ec Low Dose 81 Mg Oral Tablet Delayed Release (Aspirin) ..... One a day Joon Boone MD Cardiology:Doing wel l. Wants to start exercise program, biking. Stress test P revention / risk reduction of CAD based on AHA/ACC guidelines involving Smoking, Blood Pressure control, Lipid management, Physical activity, Weight management, Diabetes management, use of antiplatelet / anticoagulant agents, Renin Angiotensin-aldosterone system blockers, beta blockers, and compliance with medications discussed with patient. H is updated medication list for this problem includes: Aspirin Ec Low Dose 81 Mg Oral Tablet Delayed Release (Aspirin) ..... One a day Plavix 75 Mg Oral Tablet (Clopidogrel bisulfate) ..... One tab. daily Joon Boone MD Cardiology:WILL TRY ENRICO Tran MD Cardiology: H is updated medication list for this problem includes: Lipitor 40 Mg Oral Tablet (Atorvastatin calcium) ..... Every other day C HOL: 129 (01/12/2011) LDL: 66 (01/12/2011) HDL: 43 (01/12/2011) T (01/12/2011) bAdoulaye Tran MD Cardiology:up to 50 Abdoulaye barlow MD Cardiology:NEG STRES S 18, HAS COMPLTE REVASC wiTH RCA STENT AND LAD STENT AND PTCA OR RPLV, , HAD ACUTE CLOSERE OF LAD AT ONE POINT H is updated medication list for this problem includes: Aspirin 81 Mg Oral Tablet (Aspirin) ..... One tab. daily Plavix 75 Mg Oral Tablet (Clopidogrel bisulfate) ..... One tab. daily Abdoulaye Tran MD Cardiology:neg ihs A 1C 5.5 N ML UACR Abdoulaye Tran MD Cardiology:mild Abdoulaye Tran MD Cardiology;supervisor metal hanging and md :Schedule for CT coronary calcium score Carlotta Barragan NP Cardiology;supervisor metal hanging and md : B P today: 110/70 P rior BP: 130/84 (03/14/2017) Prior 10 Yr Risk Heart Disease: N/A (03/04/2014) Labs Reviewed: C reat: 1.18 (01/12/2011) C hol: 129 (01/12/2011) HDL: 43 (01/12/2011) LDL: 66 (01/12/2011) T (01/12/2011) Carlotta Barragan NP Cardiology;supervisor metal hanging and md:Agreeable t o home sleep study Carlotta Barragan NP Cardiology:mnay sx will cardoso Guillermina Tran MD Cardiology:lad and r ca stent in diff settign, due for strell later this year Abdoulaye Tran MD Cardiology:119 Abdoulaye Tran MD Cardiology Abdoulaye Tran MD Cardiology;ECHO PENI GN:MILD WILL SEE PRIAMRY, OREDED US AND LIPOASE, CMP NML THIS MONTH Abdoulaye Tran MD Cardiology;ECHO PENI GN:1. Normal left ventricular systolic function. Normal left ventricular size. Normal left ventricular wall t hickness. There is impaired LV relaxation. Normal E/E` 4.8. Left ventricular ejection fraction is e stimated at 55 %. 2 . The left atrium is normal in size. 3 . The tricuspid valve is normal in appearance and function. No evidence of tricuspid regurgitation. T he IVC is not well visualized. Unable to adequately assess the RVSP. 4 . Mild mitral annular calcification. Normal appearing mitral valve leaflets. There is trace physiologic m itral valve regurgitation. Abdoulaye Tran MD Cardiology;ECHO PENIGN Abdoulaye Se rota Cardiology;ECHO PENIGN Abdoulaye Se rota Cardiology;ECHO PENIGN Abdoulaye Se rota Cardiology;ECHO PENIGN Abdoulaye Se rota Cardiology;ECHO PENIGN Abdoulaye Se rota Cardiology;ECHO PENIGN Abdoulaye Se rota Cardiology;ECHO PENIGN Abdoulaye Se rota Cardiology;ECHO PENIGN:MILD WILL SEE PRIAMRY Abdoulaye Tran MD Cardiology;ECHO PENI GN:LDL 46, WILL CUT BACK LIPITOR TO EVERY OTHER DAY GIVEN SOME LEG CRAMPS Abdoulaye Tran MD Cardiology;ECHO PENIGN:127 K Austin seun Tran MD Cardiology;ECHO PENIGN:A1C 5.5 H meghan Tran MD Cardiology;ECHO PENIGN:LEVEL HIG H, DOES CUT BACK Abdoulaye Tran MD Cardiology Abdoulaye Tran MD Cardiology:WILL CHANGE TO YUMIKO Jacinto Abdoulaye Tran MD Cardiology:110, LOW SINCE 08 Austin Tran MD follow up: H is updated medication list for this problem includes: Aspirin 81 Mg Tabs (Aspirin) ..... One tab. daily Diovan 160 Mg Tabs (Valsartan) ..... One tab. daily Abdoulaye Tran MD follow up: O rders: C omplete Echo (CPT-82147) M UGA (LVEF) (CPT-43375) Abdoulaye Tran MD follow up: O rders: C omplete Echo (CPT-34536) M UGA (LVEF) (CPT-26103) Abdoulaye Tran MD f/u: H is updated medication list for this problem includes: Aspirin 81 Mg Tabs (Aspirin) ..... One tab. daily Diovan 160 Mg Tabs (Valsartan) ..... One tab. daily Orders: E KG (CPT-92862) C omplete Echo (CPT-97077) S TR - Routine (CPT-70272) Abdoulaye Tran MD f/u: O rders: C omplete Echo (CPT-19721) S TR - Routine (CPT-17917) Abdoulaye Tran MD f/u: O rders: C omplete Echo (CPT-77480) S TR - Routine (CPT-63136) Abdoulaye Tran MD f/u: O rders: C omplete Echo (CPT-81957) S TR - Routine (CPT-81435) Abdoulaye Tran MD follow up: H is updated medication list for this problem includes: Simcor 1000-20 Mg Tb24 (Niacin-simvastatin) ..... One tab. daily - dispense as written Plavix 75 Mg Tabs (Clopidogrel bisulfate) ..... One tab. daily Aspirin 81 Mg Tabs (Aspirin) ..... One tab. daily Orders: S TR - Nuclear ([id number]) Abdoulaye Tran MD follow up: H is updated medication list for this problem includes: Aspirin 81 Mg Tabs (Aspirin) ..... One tab. daily Diovan 160 Mg Tabs (Valsartan) ..... One tab. daily Orders: S TR Sadie Napoles ([id number]) Abdoulaye Tran MD follow up: O rders: Fay Npaoles ([id number]) Abdoulaye Tran MD follow up: H is updated medication list for this problem includes: Simcor 1000-20 Mg Tb24 (Niacin-simvastatin) ..... One tab. daily - dispense as written Plavix 75 Mg Tabs (Clopidogrel bisulfate) ..... One tab. daily Aspirin 81 Mg Tabs (Aspirin) ..... One tab. daily Orders: S TR Sadie Napoles ([id number]) Abdoulaye Tran MD follow up: H is updated medication list for this problem includes: Simcor 1000-20 Mg Tb24 (Niacin-simvastatin) ..... One tab. daily - dispense as written Plavix 75 Mg Tabs (Clopidogrel bisulfate) ..... One tab. daily Aspirin 81 Mg Tabs (Aspirin) ..... One tab. daily Orders: Fay Napoles ([id number]) Abdoulaye Tran MD follow up: O rders: Fay Napoles ([id number]) Abdoulaye Tran MD follow up: O rders: Fay Napoles ([id number]) Abdoulaye Tran MD follow up: H is updated medication list for this problem includes: Plavix 75 Mg Tabs (Clopidogrel bisulfate) ..... One tab. daily Aspirin 81 Mg Tabs (Aspirin) ..... One tab. daily Orders: Fay Napoles ([id number]) Abdoulaye Tran MD follow up: H is updated medication list for this problem includes: Simcor 1000-20 Mg Tb24 (Niacin-simvastatin) ..... One tab. daily - dispense as written Orders: Fay Napoles ([id number]) Abdoulaye Tran MD follow up Abdoulaye Tran MD follow up Abdoulaye Tran MD follow up: H is updated medication list for this problem includes: Simcor 1000-20 Mg Tb24 (Niacin-simvastatin) ..... One tab. daily - dispense as written Plavix 75 Mg Tabs (Clopidogrel bisulfate) ..... One tab. daily Aspirin 81 Mg Tabs (Aspirin) ..... One tab. daily Abdoulaye Tran MD follow up Abdoulaye Tran MD follow up: H is updated medication list for this problem includes: Plavix 75 Mg Tabs (Clopidogrel bisulfate) ..... One tab. daily Aspirin 81 Mg Tabs (Aspirin) ..... One tab. daily Abdoulaye Tran MD follow up: H is updated medication list for this problem includes: Simcor 1000-20 Mg Tb24 (Niacin-simvastatin) ..... One tab. daily - dispense as written Abdoulaye Tran MD FU: H is updated medication list for this problem includes: Simcor 1000-20 Mg Tb24 (Niacin-simvastatin) ..... One tab. daily - dispense as written Plavix 75 Mg Tabs (Clopidogrel bisulfate) ..... One tab. daily Aspirin 81 Mg Tabs (Aspirin) ..... One tab. daily Orders: E KG (CPT-38995) Abdoulaye Tran MD FU: H is updated medication list for this problem includes: Aspirin 81 Mg Tabs (Aspirin) ..... One tab. daily Diovan 160 Mg Tabs (Valsartan) ..... One tab. daily Abdoulaye Tran MD FU: H is updated medication list for this problem includes: Plavix 75 Mg Tabs (Clopidogrel bisulfate) ..... One tab. daily Aspirin 81 Mg Tabs (Aspirin) ..... One tab. daily Abdoulaye Tran MD FU Abdoulaye Tran MD FU Abdoulaye Tran MD FU: H is updated medication list for this problem includes: Simcor 1000-20 Mg Tb24 (Niacin-simvastatin) ..... One tab. daily - dispense as written Plavix 75 Mg Tabs (Clopidogrel bisulfate) ..... One tab. daily Aspirin 81 Mg Tabs (Aspirin) ..... One tab. daily Abdoulaye Tran MD FU Abdoulaye Tran MD FU: H is updated medication list for this problem includes: Simcor 1000-20 Mg Tb24 (Niacin-simvastatin) ..... One tab. daily - dispense as written Plavix 75 Mg Tabs (Clopidogrel bisulfate) ..... One tab. daily Aspirin 81 Mg Tabs (Aspirin) ..... One tab. daily Abdoulaye Tran MD FU: H is updated medication list for this problem includes: Simcor 1000-20 Mg Tb24 (Niacin-simvastatin) ..... One tab. daily - dispense as written Abdoulaye Tran MD FU: H is updated medication list for this problem includes: Aspirin 81 Mg Tabs (Aspirin) ..... One tab. daily Diovan 160 Mg Tabs (Valsartan) ..... One tab. daily Orders: S tress Test - Nuclear ([id number]) Abdoulaye Tran MD FU: O rders: S tress Test - Nuclear ([id number]) Abdoulaye Tran MD FU: O rders: S tress Test - Nuclear ([id number]) Abdoulaye Tran MD FU: H is updated medication list for this problem includes: Simcor 1000-20 Mg Tb24 (Niacin-simvastatin) ..... One tab. daily - dispense as written Plavix 75 Mg Tabs (Clopidogrel bisulfate) ..... One tab. daily Aspirin 81 Mg Tabs (Aspirin) ..... One tab. daily Orders: S tress Test - Nuclear ([id number]) Abdoulaye Tran MD FU: H is updated medication list for this problem includes: Simcor 1000-20 Mg Tb24 (Niacin-simvastatin) ..... One tab. daily - dispense as written Plavix 75 Mg Tabs (Clopidogrel bisulfate) ..... One tab. daily Aspirin 81 Mg Tabs (Aspirin) ..... One tab. daily Orders: S tress Test - Nuclear ([id number]) Abdoulaye Tran MD FU: H is updated medication list for this problem includes: Plavix 75 Mg Tabs (Clopidogrel bisulfate) ..... One tab. daily Aspirin 81 Mg Tabs (Aspirin) ..... One tab. daily Orders: S tress Test - Nuclear ([id number]) Abdoulaye Tran MD FU: H is updated medication list for this problem includes: Simcor 1000-20 Mg Tb24 (Niacin-simvastatin) ..... One tab. daily - dispense as written Plavix 75 Mg Tabs (Clopidogrel bisulfate) ..... One tab. daily Aspirin 81 Mg Tabs (Aspirin) ..... One tab. daily Orders: S tress Test - Nuclear ([id number]) Abdoulaye Tran MD FU: H is updated medication list for this problem includes: Simcor 1000-20 Mg Tb24 (Niacin-simvastatin) ..... One tab. daily - dispense as written Orders: S tress Test - Nuclear ([id number]) Abdoulaye Tran MD FU: H is updated medication list for this problem includes: Simcor 1000-20 Mg Tb24 (Niacin-simvastatin) ..... One tab. daily - dispense as written Abdoulaye Tran MD stable post mi, will increase simcor: H is updated medication list for this problem includes: Aspirin 81 Mg Tabs (Aspirin) ..... One tab. daily Diovan 160 Mg Tabs (Valsartan) ..... One tab. daily BP today: 148/88 P rior BP: 144/86 (01/24/2008) Labs Reviewed: C reat: 1.30 (01/24/2008) C hol: 112 (01/24/2008) HDL: 42 (01/24/2008) LDL: 49 MG/DL (CALC) (01/24/2008) T (01/24/2008) Abdoulaye Tran MD stable post mi, will increase si vero Tran MD stable post mi, will increase si vero Tran MD stable post mi, will increase simcor: H is updated medication list for this problem includes: Plavix 75 Mg Tabs (Clopidogrel bisulfate) ..... One tab. daily Aspirin 81 Mg Tabs (Aspirin) ..... One tab. daily BP today: 148/88 Prior BP: 144/86 (01/24/2008) B UN: 20 (01/24/2008) Creat: 1.30 (01/24/2008) Glucose: 97 (01/24/2008) N a+: 145 (01/24/2008) K+: 4.5 (01/24/2008) Cl: 108 (01/24/2008) Calcium: 9.8 (01/24/2008) Echocardiogram: Normal left ventricular wall thickness.The left ventrical is Moderate enlarged. LV EF is estimated at 65%. ( 1+) Mild mitral regurgitation. M inimal tricuspid regurgitation. N o clinically significant valvular abnormalities. (01/30/2008) C ardiac Cath: Normal exercise capacity R esting hypertension with hypertensive response to exercise N o diagnostic ST or T changes N o significant arrhythmias T here is no evidence for exercise-induced myocardial ischemia R esting BP = 150/83 Max BP = 275/66 % Max HR achieved = 101% METs achieved = 10.1 Normal left ventricular size and function with a calculated ejection fraction of 62%. M yocardial scintigraphy is normal without evidence for previous myocardial infarction or reversible ischemia. (01/30/2008) C ardiac Cath Comments: Successful stenting of the proximal LAD with a 2.5 x 8mm Vision and 2.5 x 18mm Vision stents (12/23/2007) Abdoulaye Tran MD stable post mi, will increase simcor: H is updated medication list for this problem includes: Simcor 1000-20 Mg Tb24 (Niacin-simvastatin) ..... One tab. daily - dispense as written (higher dose) Plavix 75 Mg Tabs (Clopidogrel bisulfate) ..... One tab. daily Aspirin 81 Mg Tabs (Aspirin) ..... One tab. daily BP today: 148/88 Prior BP: 144/86 (01/24/2008) C ardiac Cath: Normal exercise capacity R esting hypertension with hypertensive response to exercise N o diagnostic ST or T changes N o significant arrhythmias T here is no evidence for exercise-induced myocardial ischemia R esting BP = 150/83 Max BP = 275/66 % Max HR achieved = 101% METs achieved = 10.1 Normal left ventricular size and function with a calculated ejection fraction of 62%. Myocardial scintigraphy is normal without evidence for previous myocardial infarction or reversible ischemia. (01/30/2008) C ardiac Cath Comments: Successful stenting of the proximal LAD with a 2.5 x 8mm Vision and 2.5 x 18mm Vision stents (12/23/2007) C arotid Doppler/Duplex: LESS THAN 50% STENOSIS OF THE INTERNAL CAROTID A RTERIES BILATERALLY. (01/30/2008) C HOL: 112 (01/24/2008) LDL: 49 MG/DL (CALC) (01/24/2008) HDL: 42 (01/24/2008) T (01/24/2008) B UN: 20 (01/24/2008) Creat: 1.30 (01/24/2008) Glucose: 97 (01/24/2008) N a+: 145 (01/24/2008) K+: 4.5 (01/24/2008) Cl: 108 (01/24/2008) Abdoulaye Tran MD stable post mi, will increase simcor: H is updated medication list for this problem includes: Simcor 1000-20 Mg Tb24 (Niacin-simvastatin) ..... One tab. daily - dispense as written (higher dose) Plavix 75 Mg Tabs (Clopidogrel bisulfate) ..... One tab. daily Aspirin 81 Mg Tabs (Aspirin) ..... One tab. daily BP today: 148/88 Prior BP: 144/86 (01/24/2008) C ardiac Cath: Normal exercise capacity R esting hypertension with hypertensive response to exercise N o diagnostic ST or T changes N o significant arrhythmias T here is no evidence for exercise-induced myocardial ischemia R esting BP = 150/83 Max BP = 275/66 % Max HR achieved = 101% METs achieved = 10.1 Normal left ventricular size and function with a calculated ejection fraction of 62%. Myocardial scintigraphy is normal without evidence for previous myocardial infarction or reversible ischemia. (01/30/2008) C ardiac Cath Comments: Successful stenting of the proximal LAD with a 2.5 x 8mm Vision and 2.5 x 18mm Vision stents (12/23/2007) C arotid Doppler/Duplex: LESS THAN 50% STENOSIS OF THE INTERNAL CAROTID A RTERIES BILATERALLY. (01/30/2008) C HOL: 112 (01/24/2008) LDL: 49 MG/DL (CALC) (01/24/2008) HDL: 42 (01/24/2008) T (01/24/2008) B UN: 20 (01/24/2008) Creat: 1.30 (01/24/2008) Glucose: 97 (01/24/2008) N a+: 145 (01/24/2008) K+: 4.5 (01/24/2008) Cl: 108 (01/24/2008) Abdoulaye Tran MD stable post mi, will increase simcor: H is updated medication list for this problem includes: Simcor 1000-20 Mg Tb24 (Niacin-simvastatin) ..... One tab. daily - dispense as written (higher dose) BP today: 148/88 Prior BP: 144/86 (01/24/2008) C HOL: 112 (01/24/2008) LDL: 49 MG/DL (CALC) (01/24/2008) HDL: 42 (01/24/2008) T (01/24/2008) Abdoulaye Tran MD stable post mi, will increase simcor: H is updated medication list for this problem includes: Simcor 1000-20 Mg Tb24 (Niacin-simvastatin) ..... One tab. daily - dispense as written (higher dose) Abdoulaye Tran MD Hosp FU: H is updated medication list for this problem includes: Aspirin Ec 325 Mg Tbec (Aspirin) ..... One tab daily Plavix 75 Mg Tabs (Clopidogrel bisulfate) ..... One tab. 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 3 5% first OM and 20% right coronary artery stenosis. Preserved LV systolic function of 60% despite moderate hypokinesis in the posterobasal and diagphragmatic segments. (12/23/2007) C ardiac Cath Comments: Successful stenting of the proximal LAD with a 2.5 x 8mm Vision and 2.5 x 18mm Vision stents (12/23/2007) Abdoulaye Tran MD Hosp FU: H is updated medication list for this problem includes: Simcor 500-20 Mg Tb24 (Niacin-simvastatin) ..... One tab. daily BP today: 144/86 Prior BP: / () Orders: L IPID PANEL ([id number]) C OMPREHENSIVE METABOLIC PANEL W/EGFR (80349) Abdoulaye Tran MD Hosp FU: H is updated medication list for this problem includes: Aspirin Ec 325 Mg Tbec (Aspirin) ..... One tab daily Plavix 75 Mg Tabs (Clopidogrel bisulfate) ..... One tab. daily Simcor 500-20 Mg Tb24 (Niacin-simvastatin) ..... One tab. 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 3 5% first OM and 20% right coronary artery stenosis. P reserved LV systolic function of 60% despite moderate hypokinesis in the posterobasal and diagphragmatic segments. (12/23/2007) C ardiac Cath Comments: Successful stenting of the proximal LAD with a 2.5 x 8mm Vision and 2.5 x 18mm Vision stents (12/23/2007) Abdoulaye Tran MD Date Name Complete Echo PROTHROMBIN TIME WIT H INR LIPID PANEL CBC (INCLUDES DIFF/P LT) BASIC METABOLIC PANE L W/EGFR LT HRT CATH PSC PROCEDURES Complete Echo Stress Cardiac PET-C T Lipoprotein (a) Complete Echo PROBNP, N TERMINAL RPM (remote patient monitoring) Complete Echo Complete Echo Stress Exercise Card iolite BASIC METABOLIC PANE L W/EGFR VITAMIN B12 LIPID PAN[address] CT, Coronary Calcium Score Sleep Study Home Complete Echo Sleep Study Home STR - Routine Complete Echo Abdominal US LIPASE AMYLASE HEMOGLOBIN A1c VITAMIN B12 Complete Echo Complete Echo STR - Routine Complete Echo STR - Nuclear Stress Test - Nuclea r Stress Test - Nuclea r COMPREHENSIVE METABO LIC PANEL W/EGFR LIPID PANEL Stress Test - Nuclea r Carotid Duplex Bilat eral Complete Echo HISTORY OF PROCEDURES Procedure Date Procedure Name Provider Procedure Notes S tatus Complex e/m visit add on Abdoulaye Tran MD completed EKG Abdoulaye Tran MD complete d Schedule Followup Abdoulaye TRAN 1 YEAR completed EKG Abdoulaye Tran MD complete d Cardiolite, 2 units Abdoulaye Tran MD completed SPECT Images Abdoulaye Tran MD comple lea Stress EKG Abdoulaye Tran MD complete d EKG Joon Boone MD completed EKG Abdoulaye Tran MD complete d Stress EKG Ruthie Carrero MD completed Stress EKG Ruthie Carrero MD completed SNOMED-CT: [id number] Current Medications Documented Abdoulaye Tran MD completed Ultrasound, abdomen, complete Abdoulaye Tran MD completed EKG Abdoulaye Tran MD complete d SNOMED-CT: [id number] Current Medications Documented Abdoulaye Tran MD completed SNOMED-CT: [id number] Current Medications Documented Abdoulaye Tran MD completed EKG Abdoulaye Tran MD complete d EKG Abdoulaye Tran MD complete d ePrescribe - Check t his box if eRx is used Abdoulaye Tran MD completed EKG Abdoulaye Tran MD complete d ePrescribe - Check t his box if eRx is used Abdoulaye Tran MD completed EKG Abdoulaye Tran MD complete d ePrescribe - Check t his box if eRx is used Abdoulaye Tran MD completed EKG Abdoulaye Tran MD complete d EKG Abdoulaye Tran MD complete d EKG Abdoulaye Tran MD complete d
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
--- OUTSIDE RECORDS SUMMARY | 2024-07-18 12:11 | XMS_ITS | CONTINUITY OF CARE DOCUMENT ---
Author Name francy, francy Address Unknown Organization [facility] Address [address] [place] [address] Phone [phone] Care Team Providers Care Research Executive Name Role Phone Abdoulaye Tran MD Unavailable [phone] BRENNA RENE AME L Unavailable [phone] BRENNA RENE AME L Unavailable [phone] PROBLEMS Condition Status Date Provider Notes Hyperlipidemia;lpa 50 active Abdoulaye Tran MD HYPERTENSION, ESSENTIAL: active Abdoulaye claros MD CAD: NEG CAROTID active Abdoulaye Tran MD DI D NOT WANT 2.5, STENT - BARE METAL LAD, CLOS ED ON TABLE 08 AND RESTENT, rca bm stent 14 with rv ptca for complete completed - Abdoulaye Tran MD BRADYCARDIA SINUS:DUE TO EXERCISE, INTOL TO COREG completed - Abdoulaye Tran MD 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 Abdoulaye barlow MD ANEMIA, B12 DEFICIENCY;PER D R LAURA completed - Abdoulaye Tran MD IMMUNE THROMBOCYTOPENIC PURPURA;PRE DATES PLAVIX active Abdoulaye Tran MD LOW HDL;ON SIMCOR 1000/20, GREAT 2009 completed - Abdoulaye Tran MD ISCHEMIA;NEG NUC 11, pos stress 14 with 85% rca to be stented completed - Abdoulaye Tran MD B12 DEFICIENCY; completed - Abdoulaye Tran MD Diastolic dysfunction active Abdoulaye Tran MD lowest 35 Aortic valve sclerosis completed 1 - Abdoulaye Tran MD Mitral regurgitation, mild completed 06/29 - Abdoulaye Tran MD Screening active Abdoulaye Tran MD hx of Abdominal discomfort completed 06/23 - Abdoulaye Tran MD ? Sleep apnea completed - Abdoulaye Tran MD Mitral insufficiency, mild active Abdoulaye duggan MD Overweight active Abdoulaye Tran MD Hypertriglyceridemia completed - Abdoulaye Tran MD covid 19;post vaccine active Abdoulaye Tran MD Diverticulosis, colon active Abdoulaye Tran MD BPH active Abdoulaye Tran MD ENCOUNTERS Date Type [...] vaccine - In-person encounter Office Visit Joon Boone MD [facility] - In-person encounter Office Visit Abdoulaye Tran MD [facility] STENT - BARE METAL LAD, CLOSED ON TABLE 08 AND RESTENT, rca bm stent 14 with rv ptca for completeDiastolic dysfunctionhx of Abdominal discomfort? Sleep apneaMitral insufficiency, mildOverweight - In-person encounter Office Visit Abdoulaye Tran MD [facility] - In-person encounter Office Visit Abdoulaye Tran MD [facility] Hyperlipidemia;lpa 50Screening - In-person encounter Office Visit Abdoulaye Tran MD [facility] Diastolic dysfunctionMitral regurgitation, mildhx of [...] Willis pulse rate 85 /min Dayanara [facility] weight E&M 169 [lb_av] Dayanara [facility] height E&M 65 [in_i] Dayanara [facility] Body Mass Index (Ratio) 28.62 kg/m2 Marcus Tran MD blood pressure, diastolic 81 mm[Hg] Mi dre Pratt blood pressure, systolic 135 mm[Hg] Carson missy Pratt oxygen saturation, oximetry 97 % Lela Pratt pulse rate 74 /min [facility]ela [facility]n blood pressure, cuff size large Sydney erickson [place] respiratory rate E&M 14 /min Dolores brenda [place] weight E&M 172 [lb_av] Lela Cobb d height E&M 65 [in_i] Lela [facility] mariann Body Mass Index (Ratio) 28.62 kg/m2 Marcus Tran MD blood pressure, diastolic 90 mm[Hg] Sydney erickson [place] blood pressure, systolic 140 mm[Hg] [facility] missy [place] oxygen saturation, oximetry 99 % Lela [place] pulse rate 68 /min Lela [facility] mariann weight E&M 172 [lb_av] Lela [facility]n blood pressure, cuff size large Sydney erickson [place] respiratory rate E&M 16 /min Dolores gutierrez [place] height E&M 65 [in_i] Lela Cobb mariann Body Mass Index (Ratio) 27.79 kg/m2 Marcus Tran MD blood pressure, diastolic 86 mm[Hg] St micaela Anaya blood pressure, systolic 134 mm[Hg] Sta [...] pressure, diastolic 89 mm[Hg] Richard celestinakathrine Denia [employer]ELOP[employer] blood pressure, systolic 140 mm[Hg] Brittani shama Loza [employer]ELOP[employer] oxygen saturation, oximetry 96 % Katelyn Mane respiratory rate E&M 16 /min Catheri ne [place] pulse rate 66 /min Katelyn [place] weight E&M 170 [lb_av] Katelyn Mane blood pressure, cuff size regular Ca therine [place] height E&M 65 [in_i] Katelyn Mane Body [...] Jamila stity Alicja pulse rate 78 /min [facility] respiratory rate E&M 16 /min Chastit y Alicja weight E&M 174 [lb_av] Chastity Alicja height E&M 65 [in_i] [facility] Alicja Body Mass Index (Ratio) 28.79 kg/m2 Marcus Tran MD blood pressure, diastolic 70 mm[Hg] [facility], systolic 110 mm[Hg] Nehemiah brucelucinda Rasheed pulse rate 70 /min Ashli respiratory rate E&M 17 /min Ashli Rupert oxygen saturation, oximetry 98 % Ashli Rasheed blood pressure, cuff size regular Gabriel españa weight E&M 173 [lb_av] Ashli Rasheed height E&M 65 [in_i] Ashli Rupert blood pressure, diastolic 84 mm[Hg] Te onia Vandana blood pressure, systolic 130 mm[Hg] Bossmna aracely Ross Body Mass Index (Ratio) 27.95 kg/m2 Marcus Tran MD blood pressure, resting Yes [place] cox O'Juanito blood pressure, diastolic 80 mm[Hg] [...] HardinWen Body Mass Index (Ratio) 38.35 kg/m2 [facility] franca respiratory rate E&M 15 /min [facility] blood pressure, diastolic 68 mm[Hg] As [facility] franca blood pressure, systolic 124 mm[Hg] [facility] pulse [facility] 77 /min [facility] oxygen saturation, oximetry 98 % [facility] weight E&M 165 [lb_av] Radha [facility] Body Mass Index (Ratio) 37.56 [...] MA blood pressure, systolic 126 mm[Hg] Rene Zuñiga MA pulse rate 78 /min Amarilis Zuñiga [...] Judah eph [place] pulse rate 56 /min [facility] saturation, oximetry 100 % [facility] respiratory rate E&M 16 /min Timberon [place] weight E&M 163.31 [lb_av] [facility] blood pressure, diastolic 86 mm[Hg] Lisa Zuñiga [...] [employer] 0-149 cholesterol, serum 119 mg/dL [employer] [id number] 9783/01 /25 calcium, serum 9.8 mg/dL [employer] 8.6-10.2 [...] 0-149 High cholesterol, serum 138 mg/dL [employer] [phone]/02 /27 calcium, serum 9.7 mg/dL [employer] 8.6-10.2 [...] [employer] 8-27 blood glucose, random 86 mg/dL [facility] 65-99 hemoglobin A1C, blood, as % of total hemoglobin 5.5 % [employer] 4.0 - 6.0 vitamin b12, serum 1774.0 pg/mL [facility] 211.0 - 946.0 High prostate specific antigen 2.63 ng/mL [facility] triglyceride, serum, fasting 100 mg/dL [facility] HDL cholesterol, serum 43 mg/dL [facility] LDL cholesterol, serum 66 mg/dL [facility] cholesterol, serum 129 mg/dL [facility] anion gap, serum 11.8 [facility] globulins, serum, total 2.4 g/dL [facility] Estimated Glomerular Filtration Rate (calc) 62 mL/min/{1.73_ m2} [facility] protein, total, serum 6.6 g/dL [facility] albumin, serum 4.2 g/dL [facility] bilirubin, serum, total 0.80 mg/dL [facility] alkaline phosphatase, serum 63 1/L [facility] alanine aminotransferase (SGPT), serum 18 1/L [facility] aspartate aminotransferase (SGOT), serum 25 1/L [facility] calcium, serum 10.0 mg/dL [facility] blood glucose, fasting 96 mg/dL [facility] creatinine, serum 1.18 mg/dL [facility] urea nitrogen, blood 14 mg/dL [facility] carbon dioxide, serum, total 30 mmol/L [facility] chloride, serum 107 mmol/L [facility] potassium, serum 4.8 mmol/L [facility] sodium, serum 144 mmol/L [facility] platelet count 107 10*3/uL [facility] red blood cell distribution width 13.0 % [facility] mean corpuscular hemoglobin concentration, RBC 34.0 g/dL [facility] mean corpuscular hemoglobin, RBC 32.0 pg [facility] mean corpuscular volume, RBC 94.3 fL [facility] hematocrit, blood 47.7 % [facility] hemoglobin, blood 16.2 g/dL [facility] erythrocyte (RBC) count 5.06 10*6/mm3 [facility] leukocyte count, blood 6.01 10*3/mm3 [facility] globulins, serum, total 2.3 g/dL [facility] Estimated Glomerular Filtration Rate (calc) >60 [facility] albumin/globulin ratio, serum 2.0 [facility] protein, total, serum 6.8 g/dL [facility] albumin, serum 4.5 g/dL [facility] bilirubin, serum, total 0.7 mg/dL [facility] alkaline phosphatase, serum 83 1/L [facility] alanine aminotransferase (SGPT), serum 20 1/L [facility] aspartate aminotransferase (SGOT), serum 16 1/L [facility] calcium, serum 9.6 mg/dL [facility] blood glucose, fasting 105 mg/dL [facility] creatinine, serum 1.02 mg/dL [facility] urea nitrogen, blood 18 mg/dL [facility] carbon dioxide, serum, total 27 mmol/L [facility] chloride, serum 111 mmol/L [facility] potassium, serum 5.1 mmol/L [facility] sodium, serum 144 mmol/L Lorin Eddie alanine [...] USE Medication Status Instructions Dates Provider [facility]ications [facility] mg tablet active TAKE [...] social history E&M Marital Statu s: L gyu with family/friends E thnicity: Smoking History: Pina caban has never smoked. Abdoulaye Tran MD social history reviewed E&M revi ewed - no changes required Abdoulaye Tran MD smoking status Never smoker Gilma Cathie social history reviewed E&M revi ewed - no changes required Raina Loza NP physical exercise, f requency, days per week yes Katelyn Mane caffeine use, averag e drinks per day [...] exercise, f requency, days per week yes [facility] alcohol use, average drinks per day social basis only [facility] use, averag e drinks per day yes [facility] use no [facility] passive cigarette sm edna exposure no [facility] smoking status Never smoker [facility] number of grandchildren Abdoulaye Barragan [...] Payer name Policy type / Coverage type [place] [employer] party ID ESSENCE O Other [id number] ADVANCE DIRECTIVES Name Date [employer] Date Name Performer [id number],C, 6 0% N ml pro BNP 53 May Periluri PERSONAL DEVELOP[employer] [id number],C,S table with no anginal symptoms n eg nuc 2020 h as multi stents for complete c arotids 2008: <50% bilaterally H is updated medication list for this problem includes: Clopidogrel 75 Mg Tablet (Clopidogrel) ..... Take one tablet by mouth once daily Aspirin 81 Mg Tablet,delayed Release (dr/ec) (Aspirin) ..... Tablet by mouth once a day May Nalluri [employer]ELOP[employer] [id number],C, B P today: 134/86 P rior BP: 138/-1 (07/13/2022) His updated medication list for this problem includes: Losartan 100 Mg Tablet (Losartan) ..... Take one tablet by mouth everyday Aspirin 81 Mg Tablet,delayed Release (dr/ec) (Aspirin) ..... Tablet by mouth once a day May Nalluri [employer] DEVELOP[employer] [id number],C,L p(a) 52.5 His updated medication list for this problem includes: Atorvastatin 40 Mg Tablet (Atorvastatin) ..... Take 1 tablet by mouth once a day take 1 tablet by mouth every day May Nalluri NATASHA [id number],C, m il pr and mr and tr May Nalluri [employer] DEVELOPMENT M[employer] [id number],C, N EG PSA May Periluri NATASHA [id number],C,60% Abdoulaye duggan MD [id number],C,mil pr and mr and tr Abdoulaye Tran MD [id number],C,ef 55 and pro 53 Abdoulaye Tran MD [id number],B, H is updated medication list for this problem includes: Atorvastatin 40 Mg Tablet (Atorvastatin) ..... Take 1 tablet by mouth every day C HOL: 138 (07/03/2018) HDL: 35 (07/03/2018) Abdoulaye Tran MD [id number],S, Abdoulaye barlow MD [id number],B, Abdoulaye barlow MD [id number],B, Abdoulaye barlow MD [id number],B, Abdoulaye Serot a [id number],C,NEG PSA Marcusbrenda jane Marc RENE [id number],S, n eg nuc 2020 h as multi stents for complete c arotids 2008: <50% bilaterally Abdoulaye Tran MD [id number],S, B 12 AUTO CORRETED n eg ihs A 1C 5.5 N ML UACR N EG EGFR NEG HEP C Abdoulaye Tran MD [id number],S, 5 5% Abdoulaye Tran MD [id number],S, m idl mr and pr Abdoulaye Tran MD [id number],C,55% Abdoulaye duggan MD [id number],C,midl mr and p r Abdoulaye Tran MD [id number],C,l ast labs: 03/2021: Chol 117, HDL 40, LDL 65, TRIG 58. His updated medication list for this problem includes: Atorvastatin 40 Mg Tablet (Atorvastatin) ..... 1 tablet by mouth once a day Raina Loza PERSONAL DEVELOPMENT M[employer] [id number],C,B P today . pt states that BP fluctuates at home. will arrange for RPM. Raina Loza PERSONAL DEVELOPMENT M[employer] [id number],C,l ast cath 2013 MBS RCA EF 35% ECHO 07/2020 EF 55%. continues on asa, plavix, losartan. allergy to coreg. Raina Loza NP [id number],C,ECHO 07/2020 E F 55% Raina Loza PERSON[employer] DEVELOPMENT [employer] [id number],C, B 12 AUTO CORRETED n eg ihs A 1C 5.5 N ML UACR Raina Loza PERSONAL DEVELOPMENT M[employer]OR [id number],C, n eg nuc 2019 h as multi stents for complete c arotids 2008: <50% bilaterally Raina Loza PERSONAL DEVELOPMENT M[employer] [id number],C, M ILD 07/2020 Raina Hanson PERSONAL DEVELOPMENT MENTOR [id number],C,BMI 28.29 Brittani Loza PERSONAL DEVELOPMENT MENTOR [id number],C,v accine and booster. (+) COVID 05/2021, mild symptoms Raina Loza PERSONAL DEVELOPMENT MENTOR Cardiology: N EG PSA Abdoulaye Tran MD [...] to proceed with LHC as planned Raina Lzoa NP Cardiology:CHOL: 138 (07/03/2018) LDL: 70 (07/03/2018) [...] by mouth once a day Raina Bhatnohemi PERSONAL DEVELOPMENT MENTOR Cardiology: 6 0% N ml pro BNP 53 May Periluri PERSONAL DEVELOPMENT M[employer]OR Cardiology:Stable wi th no anginal symptoms n [...] by mouth once a day May Periluri PERSONAL DEVELOPMENT MENTOR Cardiology:Lp(a) 52. 5 His updated medication list [...] Abdoulaye Tran MD Cardiology Abdoulaye Tran MD Cardiology:NEG PSA Abdoulaye Tran MD Cardiology: [...] c arotids 2008: <50% bilaterally Raina Loza NP Cardiology: M ILD 07/2020 Raina Loza NP Cardiology:BMI 28.29 Raina pope NP Cardiology:vaccine a nd booster. (+) COVID 05/2021, mild symptoms Raina Bhatnohemi [employer]ERSON[employer] DEVELOPMENT M[employer]OR Cardiology:DOSES NOT WANT RX Austin Tran MD [...] 66 (01/12/2011) HDL: 43 (01/12/2011) T (01/12/2011) Abdoulaye Tran MD Cardiology:up to 50 Abdoulaye barlow [...] Abdoulaye Tran MD Cardiology:mild Abdoulaye Tran MD Cardiology;numerical control lathe operator and md :Schedule for CT coronary calcium score Carlotta Barragan NP Cardiology;numerical control lathe operator and md : B P today: 110/70 P rior BP: 130/84 (03/14/2017) Prior 10 Yr Risk Heart Disease: N/A (03/04/2014) Labs Reviewed: C reat: 1.18 (01/12/2011) C hol: 129 (01/12/2011) HDL: 43 (01/12/2011) LDL: 66 (01/12/2011) T (01/12/2011) Carlotta Barragan NP Cardiology;numerical control lathe operator and md:Agreeable t o home sleep study [...] follow up: O rders: C omplete Echo (CPT-16441) M UGA (LVEF) (CPT-20492) Abdoulaye Tran MD follow up: O rders: C omplete Echo (CPT-02016) M UGA (LVEF) (CPT-92537) Abdoulaye Tran MD f/u: H is updated medication list for this problem includes: Aspirin 81 Mg Tabs (Aspirin) ..... One tab. daily Diovan 160 Mg Tabs (Valsartan) ..... One tab. daily Orders: E KG (CPT-17184) C omplete Echo (CPT-04427) S TR - Routine (CPT-13556) Abdoulaye Tran MD f/u: O rders: C omplete Echo (CPT-79852) S TR - Routine (CPT-19890) Abdoulaye Tran MD f/u: O rders: C omplete Echo (CPT-89989) S TR - Routine (CPT-21605) Abdoulaye Tran MD f/u: O rders: C omplete Echo (CPT-65056) S TR - Routine (CPT-07055) Abdoulaye Tran MD follow up: H is updated medication list for this problem includes: Simcor 1000-20 Mg Tb24 (Niacin-simvastatin) ..... One tab. daily - dispense as written Plavix 75 Mg Tabs (Clopidogrel bisulfate) ..... One tab. daily Aspirin 81 Mg Tabs (Aspirin) ..... One tab. daily Orders: S TR - Nuclear (64785) Abdoulaye Tran MD follow up: H is updated medication list for this problem includes: Aspirin 81 Mg Tabs (Aspirin) ..... One tab. daily Diovan 160 Mg Tabs (Valsartan) ..... One tab. daily Orders: S TR Sadie Napoles ([id number]) Abdoulaye Tran MD follow up: O rders: Fay Napoles ([id number]) Abdoulaye Tran MD follow up: H is updated medication list for this problem includes: Simcor 1000-20 Mg Tb24 (Niacin-simvastatin) ..... One tab. daily - dispense as written Plavix 75 Mg Tabs (Clopidogrel bisulfate) ..... One tab. daily Aspirin 81 Mg Tabs (Aspirin) ..... One tab. daily Orders: S TR Sadie Napoles (23245) Abdoulaye Tran MD follow up: H is updated medication list for this problem includes: Simcor 1000-20 Mg Tb24 (Niacin-simvastatin) ..... One tab. daily - dispense as written Plavix 75 Mg Tabs (Clopidogrel bisulfate) ..... One tab. daily Aspirin 81 Mg Tabs (Aspirin) ..... One tab. daily Orders: Fay Napoles (92593) Abdoulaye Tran MD follow up: O rders: Fay Napoles (00046) Abdoulaye Tran MD follow up: O rders: Fay Napoles (74243) Abdoulaye Tran MD follow up: H is updated medication list for this problem includes: Plavix 75 Mg Tabs (Clopidogrel bisulfate) ..... One tab. daily Aspirin 81 Mg Tabs (Aspirin) ..... One tab. daily Orders: Fay Napoles (83932) Abdoulaye Tran MD follow up: H is updated medication list for this problem includes: Simcor 1000-20 Mg Tb24 (Niacin-simvastatin) ..... One tab. daily - dispense as written Orders: Fay Napoles (37051) Abdoulaye Tran MD follow up Abdoulaye Tran [...] ..... One tab. daily Orders: E KG (CPT-99021) Abdoulaye Tran MD FU: H is updated [...] daily Orders: S tress Test - Nuclear (04428) Abdoulaye Tran MD FU: O rders: S tress Test - Nuclear (28730) Abdoulaye Tran MD FU: O rders: S tress Test - Nuclear (88166) Abdoulaye Tran MD FU: H is updated medication list for this problem includes: Simcor 1000-20 Mg Tb24 (Niacin-simvastatin) ..... One tab. daily - dispense as written Plavix 75 Mg Tabs (Clopidogrel bisulfate) ..... One tab. daily Aspirin 81 Mg Tabs (Aspirin) ..... One tab. daily Orders: S tress Test - Nuclear (12949) Abdoulaye Tran MD FU: H is updated medication list for this problem includes: Simcor 1000-20 Mg Tb24 (Niacin-simvastatin) ..... One tab. daily - dispense as written Plavix 75 Mg Tabs (Clopidogrel bisulfate) ..... One tab. daily Aspirin 81 Mg Tabs (Aspirin) ..... One tab. daily Orders: S tress Test - Nuclear (63494) Abdoulaye Tran MD FU: H is updated medication list for this problem includes: Plavix 75 Mg Tabs (Clopidogrel bisulfate) ..... One tab. daily Aspirin 81 Mg Tabs (Aspirin) ..... One tab. daily Orders: S tress Test - Nuclear (50301) Abdoulaye Tran MD FU: H is updated medication list for this problem includes: Simcor 1000-20 Mg Tb24 (Niacin-simvastatin) ..... One tab. daily - dispense as written Plavix 75 Mg Tabs (Clopidogrel bisulfate) ..... One tab. daily Aspirin 81 Mg Tabs (Aspirin) ..... One tab. daily Orders: S tress Test - Nuclear (99944) Abdoulaye Tran MD FU: H is updated medication list for this problem includes: Simcor 1000-20 Mg Tb24 (Niacin-simvastatin) ..... One tab. daily - dispense as written Orders: S tress Test - Nuclear (08543) Abdoulaye Tran MD FU: H is updated medication list for this problem includes: Simcor 1000-20 Mg Tb24 (Niacin-simvastatin) ..... One tab. daily - dispense as written Abdoulaye Tarn MD stable post mi, will increase simcor: [...] PANEL (7600) C OMPREHENSIVE METABOLIC PANEL W/EGFR (33484) Abdoulaye Tran MD Hosp FU: H is [...] Stress EKG Ruthie Carrero MD completed SNOMED-CT: [id number] Current Medications Documented Abdoulaye Tran MD completed Ultrasound, abdomen, complete Abdoulaye Tran MD completed EKG Abdoulaye Tran MD complete d SNOMED-CT: [id number] Current Medications Documented Abdoulaye Tran MD completed SNOMED-CT: [id number] Current Medications Documented Abdoulaye Tran MD completed [...]
[2024-07-18] MEDS: HYDROGEN PEROXIDE 3% SOLN(*SP) 473 ML BOTTLE 120 ML IRRIGATION (12:17)
== END 2024-07-18 12:32 | disposition home or self-care (01) ==
PROVIDERS: Emergency Provider Nurse Practitioner
DX: H61.21 Impacted cerumen, right ear (principal)
CPT/HCPCS: 69210; 99202; G0463